=== PATIENT | female | born 1940 | race African-American/Black ===

== ENCOUNTER 2017-02-04 19:14 | Inpatient (IN) | payer OTHER, MEDICARE ==
[2017-02-04 20:00] VITALS: BP 135/88; PULSE 80; PULSE 89; RESP 18; TEMP 101.3; O2SAT 93
[2017-02-04] MEDS: SODIUM CHLORIDE 0.9% FLUSH 10 ML FLUSH PRN ×2 (20:15→20:30)
[2017-02-04 20:30] VITALS: O2SAT 96
[2017-02-04] MEDS ORDERED: ZOLPIDEM TARTRATE 5 MG TAB PO PRN (20:45)
[2017-02-04] MEDS ORDERED: METOCLOPRAMIDE HCL 10 MG/2 ML VIAL IV PRN (20:45)
[2017-02-04] MEDS ORDERED: RESP: ALBUTEROL 2.5 MG/IPRATROPIUM 0.5 MG NEB (PRN) INH (20:45)
[2017-02-04] MEDS ORDERED: LORazepam 2 MG/ML VIAL IV PRN (20:45)
[2017-02-04] MEDS ORDERED: CHLORHEXIDINE GLUCONATE 2 % 1 PACK (2 CLOTHS) TOP PRN (20:45)
[2017-02-04] MEDS ORDERED: MISCELLANEOUS NURSING INFORMATION XX SCH (20:45)
[2017-02-04] MEDS ORDERED: LABETALOL HCL 100 MG/20 ML VIAL IV PUSH ONE (20:45)
[2017-02-04] MEDS ORDERED: ONDANSETRON HCL 4 MG/2 ML VIAL IV PRN (20:45)
[2017-02-04] MEDS: SODIUM CHLORIDE 0.9% FLUSH 10 ML FLUSH SCH (21:00)
[2017-02-04] MEDS: DOCUSATE SODIUM 100 MG CAP PO SCH (21:00)
[2017-02-04] MEDS: SODIUM CHLOR 0.9% 1000 ML INJ 1,000 ML IV SCH (21:00)
[2017-02-04 21:07] LABS: AUTOMATED NEUTROPHIL # 5.8 TH/MM3 (1.8-7.7); BASOPHIL % 0.5 % (0.0-2.0); EOSINOPHIL # 0.1 TH/MM3 (0-0.4); EOSINOPHIL % 0.7 % (0.0-4.0); HEMATOCRIT 36.2 % (35.0-46.0); HEMO FLAGS DIFF FINAL; LYMPH % 19.4 % (9.0-44.0); LYMPHOCYTE # 1.8 TH/MM3 (1.0-4.8); MEAN CELL VOLUME 87.3 FL (80.0-100.0); MEAN CORPUSCULAR HEMOGLOBIN 29.1 PG (27.0-34.0); MEAN CORPUSCULAR HGB CONC 33.4 % (32.0-36.0); MONO % 15.8 % (0.0-8.0); NEUT % 63.6 % (16.0-70.0); PLATELET COUNT 154 TH/MM3 (150-450); RED BLOOD COUNT 4.14 MIL/MM3 (4.00-5.30); WHITE BLOOD COUNT 9.1 TH/MM3 (4.0-11.0)
[2017-02-04 21:26] LABS: APTT (PATIENT) 29.4 SEC (24.3-30.1); PROTHROMBIN TIME - PATIENT 11.5 SEC (9.8-11.6)
[2017-02-04 21:33] LABS: ANION GAP 9 MEQ/L (5-15); AST (GOT) 19 U/L (15-37); BICARBONATE 26.2 MEQ/L (21.0-32.0); BLOOD UREA NITROGEN 10 MG/DL (7-18); CHLORIDE 103 MEQ/L (98-107); GLOMERULAR FILTRATION RATE 100 ML/MIN (>89); POTASSIUM 3.3 MEQ/L (3.5-5.1); SODIUM (NA) 138 MEQ/L (136-145)
[2017-02-04 21:38] LABS: ALKALINE PHOSPHATASE 54 U/L (45-117); ALT (GPT) 15 U/L (10-53); TOTAL BILIRUBIN ADULT 0.8 MG/DL (0.2-1.0)
[2017-02-04] MEDS: LABETALOL INJ 500 MG in SODIUM CHLORIDE 0.9% INJ 150 ML IV SCH (21:42)
[2017-02-04 21:53] LABS: BLOOD GAS BASE EXCESS -0.3 mmol/L (-2-2); BLOOD GAS CARBOXYHEMOGLOBIN 1.7 % (0-4); BLOOD GAS HCO3 23 mmol/L (22-26); BLOOD GAS METHEMOGLOBIN 1.7 % (0-2); BLOOD GAS O2 HGB SATURATION 93 % (90-100); BLOOD GAS OXYGEN CONTENT 15.1 Vol % (12.0-20.0); BLOOD GAS PCO2 34 mmHg (38-42); BLOOD GAS PO2 84 mmHg (61-120); BLOOD GAS TOTAL HGB 11.5 G/DL (12.0-16.0); CRITICAL VALUE NO; DRAW SITE ART LINE; LITER FLOW 4 L/M; OXYGEN DEVICE NASAL CANNULA; STAT NO; TEMP CORR TO 98.6
--- NOTE | 2017-02-04 22:07 | HHI.HP ---
History of Present Illness Chief Complaint: acute aortic dissection History of Present Illness 76 yo female with chest pain about a month ago for which she did not seek medical therapy and then had recurrent chest/abdominal pain a few days ago that prompted her to be admitted through the ER at an outside institution. She was found to have an acute TBAD and was transferred here. When I examined her this evening, she is pain free, having no distress, and looks comfortable. She says that the pain she had was in "her chest" but points to her epigastric region. Past/Family/Social History Past Medical History HTN DM Past Surgical History appy BTL Social History born and raised in [place] She lives at home and performs all her ADL including on occasion watching her grandchildren Coded Allergies: Lidocaine (Verified Allergy, Severe, unresponsive , 02/04/17) Review of Systems Constitutional: COMPLAINS OF: Fever Cardiovascular: COMPLAINS OF: Chest pain Gastrointestinal: COMPLAINS OF: Abdominal pain Psychiatric: DENIES: Anxiety Physical Exam Vitals/I&O Date Time Temp Pulse Resp B/P Pulse Ox O2 Delivery O2 Flow Rate FiO2 02/04/17 20:30 96 Nasal Cannula 4.00 Neuro: Somnolent but conversant and appropriate No focal deficits HEENT: NC/AT; sclera anicteric Neck: no JVD Heart: prominent S2 and occasional irreg bets appreciated Lungs: clear bilaterally Abdomen: nontender Vascular: palpable 2+ femoral pulses +Doppler signals B feet Extremities: no C/C/E; no tissue loss Laboratory Tests Test 02/04/17 02/04/17 02/04/17 20:25 20:50 21:45 Prothrombin Time 11.5 Prothromb Time International 1.0 Ratio Activated Partial 29.4 Thromboplast Time White Blood Count 9.1 Red Blood Count 4.14 Hemoglobin 12.1 Hematocrit 36.2 Mean Corpuscular Volume 87.3 Mean Corpuscular Hemoglobin 29.1 Mean Corpuscular Hemoglobin 33.4 Concent Red Cell Distribution Width 14.0 Platelet Count 154 Mean Platelet Volume 9.0 Neutrophils (%) (Auto) 63.6 Lymphocytes (%) (Auto) 19.4 Monocytes (%) (Auto) 15.8 Eosinophils (%) (Auto) 0.7 Basophils (%) (Auto) 0.5 Neutrophils # (Auto) 5.8 Lymphocytes # (Auto) 1.8 Monocytes # (Auto) 1.4 Eosinophils # (Auto) 0.1 Basophils # (Auto) 0.0 CBC Comment DIFF FINAL Differential Comment Sodium Level 138 Potassium Level 3.3 Chloride Level 103 Carbon Dioxide Level 26.2 Anion Gap 9 Blood Urea Nitrogen 10 Creatinine 0.69 Estimat Glomerular Filtration 100 Rate Random Glucose 107 Lactic Acid Level 0.9 Calcium Level 8.5 Total Bilirubin 0.8 Aspartate Amino Transf 19 (AST/SGOT) Alanine Aminotransferase 15 (ALT/SGPT) Alkaline Phosphatase 54 Troponin I LESS THAN 0.02 Total Protein 6.9 Albumin 2.9 Blood Type O POSITIVE Antibody Screen NEGATIVE Blood Gas Puncture Site ART LINE Blood Gas Patient Temperature 98.6 Blood Gas HCO3 23 Blood Gas Base Excess -0.3 Blood Gas Oxygen Saturation 93 Arterial Blood pH 7.45 Arterial Blood Partial 34 Pressure CO2 Arterial Blood Partial 84 Pressure O2 Arterial Blood Oxygen Content 15.1 Arterial Blood 1.7 Carboxyhemoglobin Arterial Blood Methemoglobin 1.7 Blood Gas Hemoglobin 11.5 Oxygen Delivery Device NASAL CANNULA Blood Gas Liter Flow 4 Outside CTA of C/A/P: type B aortic dissection with slight aneurysmal degeneration but no other complicating features. Does have pleural effusion. 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 Labetolol gtt for goal SBP <110. 2. Watch for recurrent back/chest/abdominal pain 3. MIVF 4. Anticipate repeat CTA on Monday if no recurrent pain I talked with the patient about the plan as well as her daughter via telephone. They agree with plan as outlined. Herman Barbour MD FACS small piece cutter [facility] - [facility] at [facility] [phone] Herman Barbour MD Feb 04, 2017 22:07
[2017-02-04 22:36] LABS: CREATINE KINASE 327 U/L (26-192)
[2017-02-04] MEDS ORDERED: POTASSIUM CHLOR 40 MEQ PREMIX 100 ML IV PRN ×2 (22:45)
[2017-02-04] MEDS ORDERED: POTASSIUM PHOSPHATE MONOBASIC 500 MG TAB PO/TUBE PRN (22:45)
[2017-02-04] MEDS ORDERED: POTASSIUM PHOSPHATE INJ 30 MMOL in SODIUM CHLOR 0.9% 250 ML INJ 250 ML IV PRN (22:45)
[2017-02-04] MEDS ORDERED: SODIUM PHOSPHATE INJ 30 MMOL in SODIUM CHLOR 0.9% 250 ML INJ 240 ML IV PRN (22:45)
[2017-02-04] MEDS ORDERED: POTASSIUM CHLOR 20 MEQ PREMIX 100 ML IV PRN (22:45)
[2017-02-04] MEDS ORDERED: MAGNESIUM OXIDE 400 MG TAB PO PRN (22:45)
[2017-02-04] MEDS ORDERED: POTASSIUM PHOSPHATE MONOBASIC 500 MG TAB PO PRN (22:45)
[2017-02-04] MEDS ORDERED: MAGNESIUM SULFATE INJ 4 GM in SODIUM CHLORIDE 0.9% INJ 92 ML IV PRN (22:45)
[2017-02-04] MEDS ORDERED: MAGNESIUM SULFATE INJ 2 GM in SODIUM CHLORIDE 0.9% INJ 96 ML IV PRN (22:45)
[2017-02-04 22:57] LABS: CKMB 1.3 NG/ML (0.5-3.6)
--- NOTE | 2017-02-04 23:06 | PD.CONS ---
HPI Service Critical Care Medicine Consult Requested By Primary Care Physician Unknown History of Present Illness 76-year-old very pleasant female resented to [facility] with chest pain and abdominal pain that started a few weeks ago however escalated a few days ago that prompted her to be admitted through the ER at an outside institution. She was found to have an acute thoracic type B aortic dissection and was transferred here for however of care. Review of Systems Constitutional: DENIES: Diaphoretic episodes, Fatigue, Fever, Weight gain, Weight loss, Chills, Dizziness, Change in appetite, Night Sweats Endocrine: DENIES: Abnorml menstrual pattern, Heat/cold intolerance, Polydipsia , Polyuria, Polyphagia Eyes: DENIES: Blurred vision, Diplopia, Eye inflammation, Eye pain, Vision loss , Photosensitivity, Double Vision Ears, nose, mouth, throat: DENIES: Tinnitus, Hearing loss, Vertigo, Nasal discharge, Oral lesions, Throat pain, Hoarseness, Ear Pain, Running Nose, Epistaxis, Sinus Pain, Toothache, Odynophagia Respiratory: DENIES: Apneas, Cough, Snoring, Wheezing, Hemoptysis, Sputum production, Shortness of breath Cardiovascular: COMPLAINS OF: Chest pain, DENIES: Palpitations, Syncope, Dyspnea on Exertion, PND, Lower Extremity Edema, Orthopnea, Claudication Gastrointestinal: COMPLAINS OF: Abdominal pain, DENIES: Black stools, Bloody stools, Constipation, Diarrhea, Nausea, Vomiting, Difficulty Swallowing, Anorexia Genitourinary: DENIES: Abnormal vaginal bleeding, Dysmenorrhea, Dyspareunia, Sexual dysfunction, Urinary frequency, Urinary incontinence, Urgency, Hematuria , Dysuria, Nocturia, Vaginal discharge Musculoskeletal: DENIES: Joint pain, Muscle aches, Stiffness, Joint Swelling, Back pain, Neck pain Integumentary: DENIES: Abnormal pigmentation, Pruritus, Rash, Nail changes, Breast masses, Breast skin changes, Nipple discharge Hematologic/lymphatic: DENIES: Bruising, Lymphadenopathy Immunologic/allergic: DENIES: Eczema, Urticaria Neurologic: DENIES: Abnormal gait, Headache, Localized weakness, Paresthesias, Seizures, Speech Problems, Tremor, Poor Balance Psychiatric: DENIES: Anxiety, Confusion, Mood changes, Depression, Hallucinations, Agitation, Suicidal Ideation, Homicidal Ideation, Delusions Past Family Social History Allergies: Coded Allergies: Lidocaine (Verified Allergy, Severe, unresponsive , 02/04/17) Past Medical History Hypertension Diabetes mellitus Active Ordered Medications Current Medications Medications (Trade) Dose Ordered Sig/Simeon Route PRN Reason Start Time Stop Time Status Last Admin Dose Admin Labetalol HCl 500 mg/Sodium Chloride 250 ml @ 0 mls/hr TITRATE IV 02/04/17 20:45 02/04/17 21:42 Sodium Chloride (NS 1000 ml Inj) 1,000 ml @ 84 mls/hr [id number] IV 02/04/17 21:00 02/04/17 21:00 Sodium Chloride (NS Flush) 2 ml UNSCH PRN .XX FLUSH AFTER USING IV ACCESS 02/04/17 20:45 02/04/17 20:30 Sodium Chloride (NS Flush) 2 ml BID .XX 02/04/17 21:00 02/04/17 21:00 Acetaminophen (Tylenol) 650 mg Q6H PRN PO PAIN 1-10 AND/OR FEVER >101F 02/04/17 20:45 Morphine Sulfate (Morphine Inj) 2 mg Q2H PRN IV PAIN SCALE 6 TO 10 02/04/17 20:45 Famotidine (Pepcid Inj) 20 mg Q12HR IV PUSH 02/04/17 21:00 02/04/17 23:17 Lorazepam (Ativan Inj) 2 mg Q4H PRN IV Agitation/Sedation 02/04/17 20:45 Ondansetron HCl (Zofran Inj) 4 mg Q6H PRN IV NAUSEA OR VOMITING 02/04/17 20:45 Metoclopramide HCl (Reglan Inj) 10 mg Q6H PRN IV NAUSEA OR VOMITING 02/04/17 20:45 Docusate Sodium (Colace) 100 mg BID PO 02/04/17 21:00 Zolpidem Tartrate (Ambien) 5 mg HS PRN PO INSOMNIA 02/04/17 20:45 Miscellaneous Information 1 [id number] XX 02/04/17 20:45 Chlorhexidine Gluconate (Chlorhexidine 2% Cloth) 3 pack Taper DAILY@04 TOP 02/05/17 04:00 02/01/18 03:59 Chlorhexidine Gluconate 3 pack 3 pack UNSCH PRN TOP HYGIENIC CARE 02/04/17 20:45 Potassium Chloride 100 ml @ 50 mls/hr Q2H PRN IV For Potassium 2.8 - 3.2 mEq/L 02/04/17 22:45 Potassium Chloride 100 ml @ 50 mls/hr Q2H PRN IV For Potassium 2.8 - 3.2 mEq/L 02/04/17 22:45 Potassium Chloride 100 ml @ 25 mls/hr UNSCH PRN IV For Potassium 3.3 - 3.5 mEq/L 02/04/17 22:45 Potassium Chloride 100 ml @ 50 mls/hr Q2H PRN IV For Potassium 3.3 - 3.5 mEq/L 02/04/17 22:45 02/04/17 23:17 Magnesium Sulfate/ Sodium Chloride (Magnesium Sulfate Inj/NS Inj) 100 ml @ 50 mls/hr UNSCH PRN IV For Magnesium 0.9 - 1.1 mg/dL 02/04/17 22:45 Magnesium Oxide 800 mg 800 mg UNSCH PRN PO For Magnesium 1.2 - 1.6 mg/dL 02/04/17 22:45 Magnesium Sulfate/ Sodium Chloride (Magnesium Sulfate Inj/NS Inj) 100 ml @ 50 mls/hr UNSCH PRN IV For Magnesium 1.2 - 1.6 mg/dL 02/04/17 22:45 Potassium Phosphate 2000 mg 2,000 mg Q4H PRN PO For Phosphorus < 2.5 mg/dL 02/04/17 22:45 Sodium Phosphate/ Sodium Chloride (Sodium Phosphate Inj/NS 250 ml Inj) 250 ml @ 42 mls/hr UNSCH PRN IV For Phosphorus < 2.5 mg/dL 02/04/17 22:45 Potassium Phosphate 2000 mg 2,000 mg UNSCH PRN PO/TUBE SEE LABEL COMMENTS 02/04/17 22:45 Potassium Phosphate/Sodium Chloride (Potassium Phosphate Inj/NS 250 ml Inj) 260 ml @ 42 mls/hr UNSCH PRN IV SEE LABEL COMMENTS 02/04/17 22:45 Family History Noncontributory Social History Negative 3 Physical Exam Vital Signs Vital Signs Date Time Temp Pulse Resp B/P Pulse Ox O2 Delivery O2 Flow Rate FiO2 02/04/17 20:30 96 Nasal Cannula 4.00 Physical Exam GENERAL: Well-nourished, well-developed patient. In no acute distress SKIN: Warm and dry. HEAD: Normocephalic. EYES: No scleral icterus. No injection or drainage. NECK: Supple, trachea midline. No JVD or lymphadenopathy. CARDIOVASCULAR: Regular rate and rhythm without murmurs, gallops, or rubs. RESPIRATORY: Breath sounds equal bilaterally. No accessory muscle use. GASTROINTESTINAL: Abdomen soft, non-tender, nondistended. MUSCULOSKELETAL: No cyanosis, or edema. BACK: Nontender without obvious deformity. No CVA tenderness. EXTREMITIES: No clubbing cyanosis or edema, peripheral pulses positive bilaterally Laboratory Laboratory Tests Test 02/04/17 02/04/17 02/04/17 20:25 20:50 21:45 Prothrombin Time 11.5 Prothromb Time International 1.0 Ratio Activated Partial 29.4 Thromboplast Time White Blood Count 9.1 Red Blood Count 4.14 Hemoglobin 12.1 Hematocrit 36.2 Mean Corpuscular Volume 87.3 Mean Corpuscular Hemoglobin 29.1 Mean Corpuscular Hemoglobin 33.4 Concent Red Cell Distribution Width 14.0 Platelet Count 154 Mean Platelet Volume 9.0 Neutrophils (%) (Auto) 63.6 Lymphocytes (%) (Auto) 19.4 Monocytes (%) (Auto) 15.8 Eosinophils (%) (Auto) 0.7 Basophils (%) (Auto) 0.5 Neutrophils # (Auto) 5.8 Lymphocytes # (Auto) 1.8 Monocytes # (Auto) 1.4 Eosinophils # (Auto) 0.1 Basophils # (Auto) 0.0 CBC Comment DIFF FINAL Differential Comment Sodium Level 138 Potassium Level 3.3 Chloride Level 103 Carbon Dioxide Level 26.2 Anion Gap 9 Blood Urea Nitrogen 10 Creatinine 0.69 Estimat Glomerular Filtration 100 Rate Random Glucose 107 Lactic Acid Level 0.9 Calcium Level 8.5 Total Bilirubin 0.8 Aspartate Amino Transf 19 (AST/SGOT) Alanine Aminotransferase 15 (ALT/SGPT) Alkaline Phosphatase 54 Total Creatine Kinase 327 Creatine Kinase MB 1.3 Creatine Kinase MB % 0.4 Troponin I LESS THAN 0.02 Total Protein 6.9 Albumin 2.9 Blood Type O POSITIVE Antibody Screen NEGATIVE Blood Gas Puncture Site ART LINE Blood Gas Patient Temperature 98.6 Blood Gas HCO3 23 Blood Gas Base Excess -0.3 Blood Gas Oxygen Saturation 93 Arterial Blood pH 7.45 Arterial Blood Partial 34 Pressure CO2 Arterial Blood Partial 84 Pressure O2 Arterial Blood Oxygen Content 15.1 Arterial Blood 1.7 Carboxyhemoglobin Arterial Blood Methemoglobin 1.7 Blood Gas Hemoglobin 11.5 Oxygen Delivery Device NASAL CANNULA Blood Gas Liter Flow 4 Result Diagram: 02/04/17204902/04/172049 Assessment and Plan Assessment and Plan Type B aortic dissection - Management for vascular surgery - Tight blood pressure control - Labetalol drip - SBP goal less than 110 Hypertension - Labetalol drip - SBP goal less than 110 Diabetes mellitus - Insulin sliding scale Hypokalemia - Electrolyte replacement per ICU protocol DVT GI prophylaxis - No chemical DVT prophylaxis due to high risk of bleed - Teds SCDs and Pepcid Critical Care: The total critical care time was 35 minutes. Time to perform other separately billable procedures was not included in the critical care time. Brian Edmond MD Feb 04, 2017 23:06
[2017-02-04] MEDS: POTASSIUM CHLOR 20 MEQ PREMIX 100 ML IV PRN (23:17)
[2017-02-04] MEDS: FAMOTIDINE 20 MG/2 ML VIAL IV PUSH SCH (23:17)
[2017-02-05] VITALS (7 sets, daily range): BP systolic 102–148; BP diastolic 46–79; PULSE 78–86; RESP 16–20; TEMP 98–100.9; O2SAT 94–98
[2017-02-05] MEDS: POTASSIUM CHLOR 20 MEQ PREMIX 100 ML IV PRN (01:30)
[2017-02-05] MEDS: CHLORHEXIDINE GLUCONATE 2 % 1 PACK (2 CLOTHS) TOP SCH (04:00)
[2017-02-05] MEDS: LABETALOL INJ 500 MG in SODIUM CHLORIDE 0.9% INJ 150 ML IV SCH ×2 (04:48→10:01)
[2017-02-05 05:09] LABS: AUTOMATED NEUTROPHIL # 6.9 TH/MM3 (1.8-7.7); BASOPHIL % 0.3 % (0.0-2.0); EOSINOPHIL % 0.2 % (0.0-4.0); HEMATOCRIT 34.3 % (35.0-46.0); HEMO FLAGS DIFF FINAL; INTERNATIONAL NORMALIZED RATIO 1.1 RATIO; LYMPH % 10.5 % (9.0-44.0); MEAN CELL VOLUME 87.7 FL (80.0-100.0); MEAN CORPUSCULAR HEMOGLOBIN 29.3 PG (27.0-34.0); MEAN CORPUSCULAR HGB CONC 33.3 % (32.0-36.0); MONO % 19.3 % (0.0-8.0); NEUT % 69.7 % (16.0-70.0); PLATELET COUNT 145 TH/MM3 (150-450); PROTHROMBIN TIME - PATIENT 11.9 SEC (9.8-11.6); RED BLOOD COUNT 3.91 MIL/MM3 (4.00-5.30); WHITE BLOOD COUNT 9.9 TH/MM3 (4.0-11.0)
[2017-02-05 05:16] LABS: ALKALINE PHOSPHATASE 51 U/L (45-117); ALT (GPT) 13 U/L (10-53); ANION GAP 7 MEQ/L (5-15); AST (GOT) 20 U/L (15-37); BICARBONATE 27.4 MEQ/L (21.0-32.0); BLOOD UREA NITROGEN 12 MG/DL (7-18); CHLORIDE 106 MEQ/L (98-107); GLOMERULAR FILTRATION RATE 90 ML/MIN (>89); MAGNESIUM 1.7 MG/DL (1.5-2.5); POTASSIUM 3.7 MEQ/L (3.5-5.1); SODIUM (NA) 140 MEQ/L (136-145); TOTAL BILIRUBIN ADULT 0.8 MG/DL (0.2-1.0)
--- NOTE | 2017-02-05 07:11 | HHI.CCPN ---
Subjective Remarks/Hospital Course 76-year-old very pleasant female resented to [facility] with chest pain and abdominal pain that started a few weeks ago however escalated a few days ago that prompted her to be admitted through the ER at an outside institution. She was found to have an acute thoracic type B aortic dissection and was transferred here for however of care. SUBJ: 02/05 remains on labetalol infusion with good blood pressure control. Spiked fever 101.4. Pancultured chest x-ray pending. Conservative medical management and CT angiogram in a.m. Objective Vital Signs Date Time Temp Pulse Resp B/P Pulse Ox O2 Delivery O2 Flow Rate FiO2 02/05/17 04:00 80 02/05/17 04:00 96 Nasal Cannula 2.00 02/05/17 04:00 100.2 16 120/69 124/59 Result Diagram: 02/05/17 0440 02/05/17 0440 Other Results Laboratory Tests Test 02/04/17 21:45 Blood Gas Puncture Site ART LINE Blood Gas Patient Temperature 98.6 Blood Gas HCO3 23 mmol/L (22-26) Blood Gas Base Excess -0.3 mmol/L (-2-2) Blood Gas Oxygen Saturation 93 % (90-100) Arterial Blood pH 7.45 (7.380-7.420) Arterial Blood Partial 34 mmHg (38-42) Pressure CO2 Arterial Blood Partial 84 mmHg Pressure O2 (61-120) Arterial Blood Oxygen Content 15.1 Vol % (12.0-20.0) Arterial Blood 1.7 % (0-4) Carboxyhemoglobin Arterial Blood Methemoglobin 1.7 % (0-2) Blood Gas Hemoglobin 11.5 G/DL (12.0-16.0) Oxygen Delivery Device NASAL CANNULA Blood Gas Liter Flow 4 L/M Objective Remarks GENERAL: Well-nourished, well-developed patient. In no acute distress SKIN: Warm and dry. HEAD: Normocephalic. EYES: No scleral icterus. No injection or drainage. NECK: Supple, trachea midline. No JVD or lymphadenopathy. CARDIOVASCULAR: Regular rate and rhythm without murmurs, gallops, or rubs. Pulses are positive with Doppler bilateral lower extremity RESPIRATORY: Breath sounds equal bilaterally. No accessory muscle use. GASTROINTESTINAL: Abdomen soft, mild diffuse tenderness, nondistended. MUSCULOSKELETAL: No cyanosis, or edema. BACK: Nontender without obvious deformity. No CVA tenderness. EXTREMITIES: No clubbing cyanosis or edema, peripheral pulses positive bilaterally NEURO: Alert awake oriented 2. No focal deficits A/P Assessment and Plan A/P Neuro: -Morphine and Tylenol for pain control -Ativan as needed for anxiety CVS: Type B aortic dissection Hypertension - Vascular surgery Dr. Barbour - Tight blood pressure control.SBP goal less than 120, Labetalol drip - Start by mouth labetalol once cleared by vascular surgery for by mouth medications - CTA am GI: -Nothing by mouth, Pepcid for GI prophylaxis : -Monitor renal function closely -Modi catheter ID: Fever -Chek UA completed, chest x-ray, blood cultures urine and sputum culture -No indication for antibiotics at this time Endo Diabetes mellitus Hypokalemia - Insulin sliding scale - Electrolyte replacement per ICU protocol DVT GI prophylaxis - No chemical DVT prophylaxis due to high risk of bleed - Teds SCDs and Pepcid Critical Care: Level 3 Yue Lester MD Feb 05, 2017 07:11
[2017-02-05] MEDS ORDERED: LABETALOL INJ 500 MG in SODIUM CHLORIDE 0.9% INJ 150 ML IV SCH (07:45)
--- NOTE | 2017-02-05 07:46 | RADRPT ---
EXAM DATE/TIME: 02/05/2017 07:20 [place] COMPARISON: No previous studies available for comparison. INDICATIONS : Respiratory disease. MEDICAL HISTORY : None. SURGICAL HISTORY : None. ENCOUNTER: Initial ACUITY: 1 day PAIN SCORE: 0/10 LOCATION: Bilateral chest FINDINGS: Single portable supine view of the chest demonstrate significant enlargement of the cardiac silhouett e and tortuosity of the thoracic aorta. There is increased density overlying the left lower lobe and obscuration left hemidiaphragm consistent with pleural fluid and/or atelectasis/consolidation. The os seous structures are grossly unremarkable. CONCLUSION: Significantly enlarged cardiac silhouette and left basilar airspace consolidation and pleural fluid. Consider further evaluation with CT to exclude mediastinal mass. Monica Cid MD on February 05, 2017 at 7:42 Board Certified Radiologist. This report was verified electronically.
[2017-02-05] MEDS: SODIUM CHLORIDE 0.9% FLUSH 10 ML FLUSH SCH ×2 (09:00→20:24)
[2017-02-05 09:21] LABS: BLOOD, URINE MOD (NEG); GLUCOSE,URINE NEG (NEG); HYALINE CAST, URINE 1 /lpf (RARE); KETONE, URINE NEG (NEG); MUCUS URINE FEW /lpf (OCC); NITRITE,URINE NEG (NEG); SQUAMOUS EPITHELIAL CELL URINE 1 /hpf (0-5); URINE COLOR YELLOW (YELLW/STRAW)
--- NOTE | 2017-02-05 09:34 | PD.VS.PN ---
Subjective Subjective/Hospital Course Pt looks good this morning - only very mild epigastric pain but no chest pain and no back pain. SBP controlled with labetolol gtt Neuro intact Objective Vitals/I&O Date Time Temp Pulse Resp B/P Pulse Ox O2 Delivery O2 Flow Rate FiO2 02/05/17 07:00 96 Nasal Cannula 2.00 02/05/17 07:00 99.3 85 20 135/79 98 112/69 02/05/17 07:00 85 02/05/17 04:00 80 02/05/17 04:00 96 Nasal Cannula 2.00 02/05/17 04:00 100.2 80 16 120/69 94 124/59 02/05/17 00:00 80 02/05/17 00:00 94 Nasal Cannula 2.00 02/05/17 00:00 100.9 80 16 111/64 94 108/53 02/04/17 20:30 96 Nasal Cannula 4.00 02/04/17 20:00 101.3 89 18 135/88 93 02/04/17 20:00 93 Nasal Cannula 2.00 02/04/17 20:00 80 02/05/17 02/05/17 02/05/17 07:00 15:00 23:00 Intake Total 1184 ml Output Total 700 ml Balance 484 ml Physical Exam Abdomen soft, NT Neuro intact Laboratory Laboratory Tests Test 02/04/17 02/04/17 02/04/17 02/05/17 20:25 20:50 21:45 04:40 Prothrombin Time 11.5 11.9 Prothromb Time International 1.0 1.1 Ratio Activated Partial 29.4 Thromboplast Time White Blood Count 9.1 9.9 Red Blood Count 4.14 3.91 Hemoglobin 12.1 11.4 Hematocrit 36.2 34.3 Mean Corpuscular Volume 87.3 87.7 Mean Corpuscular Hemoglobin 29.1 29.3 Mean Corpuscular Hemoglobin 33.4 33.3 Concent Red Cell Distribution Width 14.0 14.0 Platelet Count 154 145 Mean Platelet Volume 9.0 9.3 Neutrophils (%) (Auto) 63.6 69.7 Lymphocytes (%) (Auto) 19.4 10.5 Monocytes (%) (Auto) 15.8 19.3 Eosinophils (%) (Auto) 0.7 0.2 Basophils (%) (Auto) 0.5 0.3 Neutrophils # (Auto) 5.8 6.9 Lymphocytes # (Auto) 1.8 1.0 Monocytes # (Auto) 1.4 1.9 Eosinophils # (Auto) 0.1 0.0 Basophils # (Auto) 0.0 0.0 CBC Comment DIFF FINAL DIFF FINAL Differential Comment Sodium Level 138 140 Potassium Level 3.3 3.7 Chloride Level 103 106 Carbon Dioxide Level 26.2 27.4 Anion Gap 9 7 Blood Urea Nitrogen 10 12 Creatinine 0.69 0.76 Estimat Glomerular Filtration 100 90 Rate Random Glucose 107 127 Lactic Acid Level 0.9 1.5 Calcium Level 8.5 8.4 Phosphorus Level 2.6 2.4 Total Bilirubin 0.8 0.8 Aspartate Amino Transf 19 20 (AST/SGOT) Alanine Aminotransferase 15 13 (ALT/SGPT) Alkaline Phosphatase 54 51 Total Creatine Kinase 327 Creatine Kinase MB 1.3 Creatine Kinase MB % 0.4 Troponin I LESS THAN 0.02 Total Protein 6.9 6.4 Albumin 2.9 2.5 Blood Type O POSITIVE Antibody Screen NEGATIVE Blood Gas Puncture Site ART LINE Blood Gas Patient Temperature 98.6 Blood Gas HCO3 23 Blood Gas Base Excess -0.3 Blood Gas Oxygen Saturation 93 Arterial Blood pH 7.45 Arterial Blood Partial 34 Pressure CO2 Arterial Blood Partial 84 Pressure O2 Arterial Blood Oxygen Content 15.1 Arterial Blood 1.7 Carboxyhemoglobin Arterial Blood Methemoglobin 1.7 Blood Gas Hemoglobin 11.5 Oxygen Delivery Device NASAL CANNULA Blood Gas Liter Flow 4 Nasal Screen MRSA (PCR) NEGATIVE Magnesium Level 1.7 Test 02/05/17 08:45 Urine Color YELLOW Urine Turbidity CLEAR Urine pH 6.0 Urine Specific [place] 1.024 Urine Protein 30 Urine Glucose (UA) NEG Urine Ketones NEG Urine Occult Blood MOD Urine Nitrite NEG Urine Bilirubin NEG Urine Urobilinogen 4.0 Urine Leukocyte Esterase NEG Urine RBC 2 Urine WBC 1 Urine Squamous Epithelial 1 Cells Urine Hyaline Casts 1 Urine Mucus FEW Date/Time Procedure Status Source Growth 02/05/17 08:45 Urine Culture Received Urine Catheterized Urine Pending 02/05/17 07:45 Aerobic Blood Culture Received Blood Peripheral Pending 02/05/17 07:45 Anaerobic Blood Culture Received Blood Peripheral Pending Imaging Last 48 hours Impressions Chest X-Ray 02/05/17 0000 Signed Impressions: Service Date/Time: Sunday, February 05, 2017 07:20 - CONCLUSION: Significantly enlarged cardiac silhouette and left basilar airspace consolidation and pleural fluid. Consider further evaluation with CT to exclude mediastinal mass. 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 Labetolol for goal SBP <110. Transition IV gtt to po 2. Watch for recurrent back/chest/abdominal pain 3. MIVF 4. Repeat CTA on Monday if no recurrent pain 5. Cardiac diet I talked with the patient about the plan as well as her daughter and son at the bedside. Herman Barbour MD FACS pilot plant research technician [facility] - Heart and Vascular at [facility] [phone] Herman Barbour MD Feb 05, 2017 09:34
[2017-02-05] MEDS: SODIUM CHLOR 0.9% 1000 ML INJ 1,000 ML IV SCH (10:00)
[2017-02-05] MEDS: FAMOTIDINE 20 MG/2 ML VIAL IV PUSH SCH ×2 (10:01→20:23)
[2017-02-05] MEDS: DOCUSATE SODIUM 100 MG CAP PO SCH ×2 (10:01→20:23)
[2017-02-05] MEDS ORDERED: PILL SPLITTER OTHER PRN (10:45)
[2017-02-05] MEDS ORDERED: LABETALOL HCL 100 MG/20 ML VIAL IV PUSH PRN (11:00)
[2017-02-05] MEDS: amLODIPine BESYLATE 5 MG TAB PO SCH (11:17)
[2017-02-05] MEDS ORDERED: METO100T PO (14:31)
[2017-02-05] MEDS ORDERED: CLON0.1T PO (14:39)
[2017-02-05] MEDS ORDERED: AMLO10TA2 PO (14:39)
[2017-02-05] MEDS ORDERED: METF1000 PO (14:39)
[2017-02-05] MEDS ORDERED: ASPI81CH37 CHEW (14:39)
[2017-02-05] MEDS ORDERED: SIMV20TA PO (14:39)
[2017-02-05] MEDS ORDERED: SERT-132 PO (14:39)
[2017-02-05] MEDS ORDERED: OXYB5TAB10 PO (14:39)
[2017-02-05] MEDS ORDERED: POTA10TA15 PO (14:39)
[2017-02-05] MEDS ORDERED: FURO40TA PO (14:39)
[2017-02-05] MEDS: LABETALOL HCL 200 MG TAB PO SCH ×2 (14:46→20:23)
--- NOTE | 2017-02-05 14:48 | EKG ---
Date Performed: 02/05/2017 Time Performed: 05:30:04 PTAGE: 76 years EKG: Sinus rhythm Normal ECG NO PREVIOUS TRACING DOCTOR: Otoniel De Paz Interpretating Date/Time 02/05/2017 14:46:36
[2017-02-05] MEDS ORDERED: HALOPERIDOL LACTATE 5 MG/ML AMP ONE (21:22)
[2017-02-05] MEDS ORDERED: HALOPERIDOL LACTATE 5 MG/ML AMP IV STA (22:09)
[2017-02-06] VITALS (10 sets, daily range): BP systolic 92–149; BP diastolic 39–85; PULSE 76–83; RESP 16–18; TEMP 98.4–99.7; O2SAT 95–98
[2017-02-06] MEDS: LABETALOL INJ 500 MG in SODIUM CHLORIDE 0.9% INJ 150 ML IV SCH ×3 (00:18→22:00)
[2017-02-06] MEDS: CHLORHEXIDINE GLUCONATE 2 % 1 PACK (2 CLOTHS) TOP SCH (04:00)
[2017-02-06] MEDS ORDERED: EPINEPHrine HCL (1:10,000) 1 MG/10 ML SYRINGE IV ONE (05:00)
[2017-02-06] MEDS ORDERED: ATROPINE SULFATE 1 MG/10 ML SYRINGE IV ONE (05:00)
[2017-02-06] MEDS: SODIUM CHLOR 0.9% 1000 ML INJ 1,000 ML IV SCH ×3 (05:00→20:40)
--- NOTE | 2017-02-06 07:39 | HHI.CCPN ---
Subjective Remarks/Hospital Course 76-year-old very pleasant female resented to [facility] with chest pain and abdominal pain that started a few weeks ago however escalated a few days ago that prompted her to be admitted through the ER at an outside institution. She was found to have an acute thoracic type B aortic dissection and was transferred here for however of care. SUBJ: 02/05 remains on labetalol infusion with good blood pressure control. Spiked fever 101.4. Pancultured chest x-ray pending. Conservative medical management and CT angiogram in a.m. 02/06: Overnight intermittently agitated. Required Ativan and Haldol. CXR 02/05 with L consolidation, effusion and enlarged cardiac silhouette. CTA chest abd pelvis ordered. Started empirically on Zosyn and azithromycin. No high fever reported Objective Vital Signs Date Time Temp Pulse Resp B/P Pulse Ox O2 Delivery O2 Flow Rate FiO2 02/06/17 04:00 76 18 92/39 97 02/06/17 04:00 Nasal Cannula 4.00 02/05/17 20:00 98.0 Intake and Output 02/05/17 02/05/17 02/06/17 08:00 16:00 00:00 Intake Total 1184 ml 2334 ml Output Total 700 ml 475 ml Balance 484 ml 1859 ml Result Diagram: 02/05/1743902/05/17439 Objective Remarks GENERAL: Well-nourished, well-developed patient. somnolent but wakes up easily SKIN: Warm and dry. HEAD: Normocephalic. EYES: No scleral icterus. No injection or drainage. NECK: Supple, trachea midline. No JVD or lymphadenopathy. CARDIOVASCULAR: Regular rate and rhythm without murmurs, gallops, or rubs. Pulses are positive with Doppler bilateral lower extremity RESPIRATORY: Breath sounds diminished at bases . No accessory muscle use. GASTROINTESTINAL: Abdomen soft, mild diffuse tenderness, nondistended. MUSCULOSKELETAL: No cyanosis, or edema. BACK: Nontender without obvious deformity. No CVA tenderness. EXTREMITIES: No clubbing cyanosis or edema, peripheral pulses positive bilaterally NEURO: Alert awake oriented 1. No focal deficits. More somnolent today Urinary Catheter: Yes Assessment to: Continue A/P Assessment and Plan A/P Neuro: Metabolic encephalopathy ? Underlying mild cognitive impairment -Morphine and Tylenol for pain control -Ativan and Haldol as needed for anxiety CVS: Type B aortic dissection Hypertension - Vascular surgery Dr. Barbour - Tight blood pressure control.SBP goal less than 120, Labetalol drip - By mouth labetalol 200 mg TID and Norvasc 2.5 mg daily - CTA chest abd pelvis today. CXR showing enlarged cardiac silhouette RESP: LLL infiltrate/effusion -DuoNeb q6 PRN. Aggressive pulmonary toilet -EzPAP, Acapella, IS -Empiric Zosyn and azithromycin -Check ABG. GI: -Cardiac diet if mentation permits, Pepcid for GI prophylaxis : -Monitor renal function closely -Modi catheter ID: Fever LLL infiltrate -F/u blood cultures urine and sputum culture -Start empiric Zosyn and azithromycin given left lower lobe infiltrate with effusion -Check urine for Legionella and pneumococcal antigen Endo Diabetes mellitus Hypokalemia - Insulin sliding scale - Electrolyte replacement per ICU protocol DVT GI prophylaxis - No chemical DVT prophylaxis due to aortic dissection - Teds SCDs and Pepcid Critical Care: CCT 32 minutes Yue Lester MD Feb 06, 2017 07:39
--- NOTE | 2017-02-06 08:21 | PD.VS.PN ---
Subjective Subjective/Hospital Course Pt slightly confused last night but no focal deficits Neuro intact Alert this morning no abdominal/chest/back paint Objective Vitals/I&O Date Time Temp Pulse Resp B/P Pulse Ox O2 Delivery O2 Flow Rate FiO2 02/06/17 07:00 99.7 79 16 146/78 95 122/53 02/06/17 07:00 95 Nasal Cannula 4.00 02/06/17 04:00 76 18 92/39 97 02/06/17 04:00 76 02/06/17 04:00 97 Nasal Cannula 4.00 02/06/17 00:00 79 18 129/54 96 02/06/17 00:00 80 02/06/17 00:00 96 Nasal Cannula 4.00 02/05/17 20:00 82 02/05/17 20:00 98.0 82 20 119/74 94 112/62 02/05/17 20:00 94 Nasal Cannula 4.00 02/05/17 15:00 99.5 86 20 148/78 96 128/60 02/05/17 15:00 86 02/05/17 15:00 96 Nasal Cannula 2.00 02/05/17 11:00 78 02/05/17 11:00 99.1 78 20 111/65 96 102/46 02/05/17 11:00 96 Nasal Cannula 2.00 02/06/17 02/06/17 02/06/17 07:00 15:00 23:00 Intake Total 1490 ml Output Total 900 ml Balance 590 ml Physical Exam no abdominal tenderness Palpable femoral pulses Laboratory Laboratory Tests Test 02/05/17 08:45 Urine Color YELLOW Urine Turbidity CLEAR Urine pH 6.0 Urine Specific [place] 1.024 Urine Protein 30 Urine Glucose (UA) NEG Urine Ketones NEG Urine Occult Blood MOD Urine Nitrite NEG Urine Bilirubin NEG Urine Urobilinogen 4.0 Urine Leukocyte Esterase NEG Urine RBC 2 Urine WBC 1 Urine Squamous Epithelial 1 Cells Urine Hyaline Casts 1 Urine Mucus FEW Date/Time Procedure Status Source Growth 02/05/17 08:45 Urine Culture Received Urine Catheterized Urine Pending 02/05/17 07:45 Aerobic Blood Culture Received Blood Peripheral Pending 02/05/17 07:45 Anaerobic Blood Culture Received Blood Peripheral Pending Imaging Last 48 hours Impressions Chest X-Ray 02/05/17 0000 Signed Impressions: Service Date/Time: Sunday, February 05, 2017 07:20 - CONCLUSION: Significantly enlarged cardiac silhouette and left basilar airspace consolidation and pleural fluid. Consider further evaluation with CT to exclude mediastinal mass. 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 Labetolol for goal SBP <110. Transition IV gtt to po 2. Watch for recurrent back/chest/abdominal pain 3. Cardiac diet 4. Repeat CTA today Herman Barbour MD FACS sr. vendor management associate [facility] - Heart and Vascular at [facility] [phone] Herman Barbour MD Feb 06, 2017 08:21
[2017-02-06 09:00] LABS: BLOOD GAS BASE EXCESS -1.1 mmol/L (-2-2); BLOOD GAS CARBOXYHEMOGLOBIN 1.5 % (0-4); BLOOD GAS HCO3 23 mmol/L (22-26); BLOOD GAS METHEMOGLOBIN 1.4 % (0-2); BLOOD GAS O2 HGB SATURATION 93 % (90-100); BLOOD GAS OXYGEN CONTENT 14.5 Vol % (12.0-20.0); BLOOD GAS PCO2 35 mmHg (38-42); BLOOD GAS PO2 84 mmHg (61-120); TEMP CORR TO 98.6
[2017-02-06] MEDS: FAMOTIDINE 20 MG/2 ML VIAL IV PUSH SCH ×2 (09:00→21:35)
[2017-02-06] MEDS: SODIUM CHLORIDE 0.9% FLUSH 10 ML FLUSH SCH ×2 (09:00→21:00)
[2017-02-06 09:01] LABS: CRITICAL VALUE NO; DRAW SITE ART LINE; LITER FLOW 4 L/M; OXYGEN DEVICE NASAL CANNULA; STAT NO
[2017-02-06 09:18] LABS: AUTOMATED NEUTROPHIL # 7.3 TH/MM3 (1.8-7.7); BASOPHIL % 0.5 % (0.0-2.0); EOSINOPHIL # 0.4 TH/MM3 (0-0.4); EOSINOPHIL % 3.4 % (0.0-4.0); HEMATOCRIT 34.3 % (35.0-46.0); HEMO FLAGS DIFF FINAL; LYMPH % 11.8 % (9.0-44.0); LYMPHOCYTE # 1.2 TH/MM3 (1.0-4.8); MEAN CELL VOLUME 88.4 FL (80.0-100.0); MEAN CORPUSCULAR HEMOGLOBIN 28.3 PG (27.0-34.0); NEUT % 69.3 % (16.0-70.0); PLATELET COUNT 146 TH/MM3 (150-450); RED BLOOD COUNT 3.88 MIL/MM3 (4.00-5.30); RED CELL DISTRIBUTION WIDTH 14.4 % (11.6-17.2); WHITE BLOOD COUNT 10.6 TH/MM3 (4.0-11.0)
[2017-02-06] MEDS: LABETALOL HCL 200 MG TAB PO SCH ×3 (09:22→21:35)
[2017-02-06] MEDS: amLODIPine BESYLATE 5 MG TAB PO SCH (09:22)
[2017-02-06] MEDS: DOCUSATE SODIUM 100 MG CAP PO SCH ×2 (09:23→21:35)
[2017-02-06 09:37] LABS: ANION GAP 7 MEQ/L (5-15); AST (GOT) 19 U/L (15-37); BICARBONATE 26.5 MEQ/L (21.0-32.0); BLOOD UREA NITROGEN 8 MG/DL (7-18); CHLORIDE 108 MEQ/L (98-107); GLOMERULAR FILTRATION RATE 108 ML/MIN (>89); MAGNESIUM 1.8 MG/DL (1.5-2.5); POTASSIUM 3.5 MEQ/L (3.5-5.1); SODIUM (NA) 141 MEQ/L (136-145)
[2017-02-06 09:42] LABS: ALKALINE PHOSPHATASE 58 U/L (45-117); ALT (GPT) 14 U/L (10-53); TOTAL BILIRUBIN ADULT 0.9 MG/DL (0.2-1.0)
[2017-02-06] MEDS: PIPERACIL-TAZO 3.375 GM PREMIX 50 ML IV SCH ×3 (09:44→21:35)
[2017-02-06] MEDS ORDERED: AZITHROMYCIN INJ 500 MG in SODIUM CHLOR 0.9% 250 ML INJ 250 ML IV SCH (10:00)
[2017-02-06] MEDS ORDERED: EPINEPHrine HCL (1:1000) 1 MG/ML VIAL ONE (10:18)
[2017-02-06] MEDS ORDERED: ATROPINE SULFATE 1 MG/ML VIAL ONE (10:18)
[2017-02-06] MEDS ORDERED: ATROPINE SULFATE 1 MG/10 ML SYRINGE ONE (10:19)
[2017-02-06] MEDS ORDERED: EPINEPHrine HCL (1:10,000) 1 MG/10 ML SYRINGE ONE (10:19)
[2017-02-06] MEDS ORDERED: IOHEXOL 350 MG/ML 10 ML VIAL (for RAD DIAG) IV ONE (10:34)
[2017-02-06] MEDS ORDERED: LABETALOL INJ 1,000 MG in SODIUM CHLORID 0.9% 500 ML INJ 300 ML IV SCH (12:45)
--- NOTE | 2017-02-06 13:06 | RADRPT ---
EXAM DATE/TIME: 02/06/2017 10:25 [facility] COMPARISON: No previous studies available for comparison. EXTERNAL COMPARISON : I have no external comparisons available to me. INDICATIONS : Evaluate status of dissection. IV CONTRAST: 85 cc Omnipaque 350 (iohexol) IV RADIATION DOSE: 9.96 CTDIvol (mGy) MEDICAL HISTORY : Hypertension. acute thoracic type B dissection, diabetes SURGICAL HISTORY : None. ENCOUNTER: Initial ACUITY: 1 day PAIN SCALE: 0/10 LOCATION: Bilateral chest TECHNIQUE: Volumetric scanning was performed using a multi-row detector CT scanner. The data was post processed with a variety of visualization algorithms including full volume maximum intensity projection, multi -planar sliding thin slab reformation, curved planar reformation, and surface rendering techniques. Using automated exposure control and adjustment of the mA and/or kV according to patient size, radiat ion dose was kept as low as reasonably achievable to obtain optimal diagnostic quality images. FINDINGS: Thoracic/abdominal aorta: A [place] type B aortic dissection is observed. The dissection begins approximately 4 cm distal to t he origin of the left subclavian artery. The dissection courses into the upper abnormal aorta where i t terminates. The arch vessels and SMA arise from the true lumen. The celiac arises from the false blayne men. Both the true and false lumens opacify with contrast. The descending aorta reaches a maximum charline meter of 4.5 cm. 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 These arise from the true lumen. The infrarenal aorta and inflow vessels are patent although with scattered calcified athe rosclerotic plaque. Heart and mediastinum: A moderate sized pleural effusion is seen on the left. Hounsfield units are 13 suggesting simple flui d. The heart is mildly enlarged. Pulmonary arteries are normal in caliber. No adenopathy. Lung parenchyma: There is passive atelectasis involving the left lower lobe. Mild dependent atelectasis involving the right lower lobe. Other structures: The abdominal viscera is unremarkable. In particular, the kidneys enhance symmetrically with a contra st bolus. No free air or free fluid. Scattered colonic diverticula is scoliotic and degenerative spin e. CONCLUSION: 1. Mario type B aortic dissection beginning approximately 4 cm distal to the left subclavian arter y origin and terminating just cephalad to the renal artery origins. The only vessel arising from the false lumen is the celiac. There is aneurysmal change of the ascending and descending aorta both of w hich measure 4.5 cm. There is some fenestration to the dissection flap as there is equal opacificatio n of the true and false lumens. Arch vessels are not involved. 2. Moderate size left pleural effusion. 3. Cardiomegaly. Ferny Harris Jr., MD on February 06, 2017 at 12:55 Board Certified Radiologist. This report was verified electronically.
[2017-02-07] VITALS (9 sets, daily range): BP systolic 111–146; BP diastolic 51–81; PULSE 68–85; RESP 16–18; TEMP 97.4–99.5; O2SAT 95–98
[2017-02-07] MEDS: LABETALOL INJ 500 MG in SODIUM CHLORIDE 0.9% INJ 150 ML IV SCH ×6 (01:29→22:07)
[2017-02-07] MEDS: PIPERACIL-TAZO 3.375 GM PREMIX 50 ML IV SCH ×4 (03:38→20:49)
[2017-02-07] MEDS: CHLORHEXIDINE GLUCONATE 2 % 1 PACK (2 CLOTHS) TOP SCH (04:00)
[2017-02-07 04:43] LABS: AUTOMATED NEUTROPHIL # 5.8 TH/MM3 (1.8-7.7); BASOPHIL % 0.4 % (0.0-2.0); EOSINOPHIL # 0.6 TH/MM3 (0-0.4); EOSINOPHIL % 6.8 % (0.0-4.0); HEMO FLAGS DIFF FINAL; LYMPH % 12.6 % (9.0-44.0); LYMPHOCYTE # 1.2 TH/MM3 (1.0-4.8); MEAN CELL VOLUME 87.9 FL (80.0-100.0); MEAN CORPUSCULAR HEMOGLOBIN 29.5 PG (27.0-34.0); MEAN CORPUSCULAR HGB CONC 33.6 % (32.0-36.0); MONO % 16.6 % (0.0-8.0); NEUT % 63.6 % (16.0-70.0); PLATELET COUNT 171 TH/MM3 (150-450); RED BLOOD COUNT 3.42 MIL/MM3 (4.00-5.30); RED CELL DISTRIBUTION WIDTH 14.2 % (11.6-17.2); WHITE BLOOD COUNT 9.2 TH/MM3 (4.0-11.0)
[2017-02-07 05:08] LABS: ALKALINE PHOSPHATASE 56 U/L (45-117); ALT (GPT) 13 U/L (10-53); ANION GAP 8 MEQ/L (5-15); AST (GOT) 13 U/L (15-37); BICARBONATE 26.2 MEQ/L (21.0-32.0); BLOOD UREA NITROGEN 7 MG/DL (7-18); CHLORIDE 109 MEQ/L (98-107); GLOMERULAR FILTRATION RATE 102 ML/MIN (>89); MAGNESIUM 1.9 MG/DL (1.5-2.5); POTASSIUM 3.4 MEQ/L (3.5-5.1); SODIUM (NA) 143 MEQ/L (136-145); TOTAL BILIRUBIN ADULT 0.9 MG/DL (0.2-1.0)
--- NOTE | 2017-02-07 05:22 | RADRPT ---
EXAM DATE/TIME: 02/07/2017 03:39 [facility] COMPARISON: CHEST SINGLE AP, February 05, 2017, 7:20. INDICATIONS : Respiratory distress. MEDICAL HISTORY : Hypertension. acute thoracic type B dissection, diabetes. SURGICAL HISTORY : None. ENCOUNTER: Subsequent ACUITY: 3 days PAIN SCORE: Non-responsive. LOCATION: Bilateral chest FINDINGS: There is left-sided airspace consolidation and pleural effusion. No significant airspace disease on t he right. No pneumothorax. Heart size mildly enlarged. Tortuous aorta. CONCLUSION: 1. Left basilar airspace disease and pleural effusion. Findings similar to February 05. Cardiomegaly. Miller Juarez MD on February 07, 2017 at 5:20 Board Certified Radiologist. This report was verified electronically.
[2017-02-07] MEDS: LABETALOL HCL 200 MG TAB PO SCH ×3 (06:14→20:49)
[2017-02-07] MEDS ORDERED: LABETALOL HCL 200 MG TAB PO STA (07:05)
[2017-02-07] MEDS ORDERED: FUROSEMIDE 20 MG/2 ML VIAL IV PUSH ONE (07:15)
[2017-02-07] MEDS ORDERED: POTASSIUM CHLORIDE 10 MEQ CONTROLLED RELEASE TAB PO ONE (07:15)
--- NOTE | 2017-02-07 07:17 | HHI.CCPN ---
Subjective Remarks/Hospital Course 76-year-old very pleasant female resented to [facility] with chest pain and abdominal pain that started a few weeks ago however escalated a few days ago that prompted her to be admitted through the ER at an outside institution. She was found to have an acute thoracic type B aortic dissection and was transferred here for however of care. SUBJ: 02/05 remains on labetalol infusion with good blood pressure control. Spiked fever 101.4. Pancultured chest x-ray pending. Conservative medical management and CT angiogram in a.m. 02/06: Overnight intermittently agitated. Required Ativan and Haldol. CXR 02/05 with L consolidation, effusion and enlarged cardiac silhouette. CTA chest abd pelvis ordered. Started empirically on Zosyn and azithromycin. No high fever reported 02/07: Remains on labetalol infusion at 3.5 mg/m. CT angiogram yesterday showed stable stat type B dissection. There was a moderate-sized left pleural effusion without infiltrate. No evidence of pneumonia I will discontinue azithromycin today DC Zosyn in 24 hours if cultures remain negative. Also give Lasix 20 mg 1, additional 200 mg by mouth labetalol and increase to 300 mg every 8 hours Objective Vital Signs Date Time Temp Pulse Resp B/P Pulse Ox O2 Delivery O2 Flow Rate FiO2 02/07/17 03:47 99.0 73 17 112/62 98 111/51 02/07/17 03:47 Nasal Cannula 4.00 Intake and Output 02/06/17 02/06/17 02/07/17 08:00 16:00 00:00 Intake Total 1490 ml 1518 ml Output Total 900 ml 650 ml Balance 590 ml 868 ml Result Diagram: 02/07/17 0430 02/07/17 0430 Other Results Laboratory Tests Test 02/06/17 08:52 Blood Gas Puncture Site ART LINE Blood Gas Patient Temperature 98.6 Blood Gas HCO3 23 mmol/L (22-26) Blood Gas Base Excess -1.1 mmol/L (-2-2) Blood Gas Oxygen Saturation 93 % (90-100) Arterial Blood pH 7.43 (7.380-7.420) Arterial Blood Partial 35 mmHg (38-42) Pressure CO2 Arterial Blood Partial 84 mmHg Pressure O2 (61-120) Arterial Blood Oxygen Content 14.5 Vol % (12.0-20.0) Arterial Blood 1.5 % (0-4) Carboxyhemoglobin Arterial Blood Methemoglobin 1.4 % (0-2) Blood Gas Hemoglobin 11.0 G/DL (12.0-16.0) Oxygen Delivery Device NASAL CANNULA Blood Gas Liter Flow 4 L/M Objective Remarks GENERAL: Well-nourished, well-developed patient. More alert today SKIN: Warm and dry. HEAD: Normocephalic. EYES: No scleral icterus. No injection or drainage. NECK: Supple, trachea midline. No JVD or lymphadenopathy. CARDIOVASCULAR: Regular rate and rhythm without murmurs, gallops, or rubs. Pulses are positive with Doppler bilateral lower extremity RESPIRATORY: Breath sounds diminished at bases. No accessory muscle use. GASTROINTESTINAL: Abdomen soft, mild diffuse tenderness, nondistended. MUSCULOSKELETAL: No cyanosis, or edema. BACK: Nontender without obvious deformity. No CVA tenderness. EXTREMITIES: No clubbing cyanosis or edema, peripheral pulses positive bilaterally NEURO: Alert awake. No focal deficits. More awake and oriented today A/P Assessment and Plan A/P Neuro: Metabolic encephalopathy/delirium ? Underlying mild cognitive impairment -Morphine and Tylenol for pain control -Ativan and Haldol as needed for anxiety -Patient may have mild underlying cognitive deficits CVS: Type B aortic dissection Hypertension - Vascular surgery Dr. Barbour - Tight blood pressure control.SBP goal less than 110, Labetalol drip at 3.5 mg per hour - By mouth labetalol 200 mg TID -increased to 300 mg every 8 hours, additional 200 mg by mouth 1. And increased Norvasc 2.5 mg daily to 5 mg daily 02/07/17 - CTA chest abd pelvis-stable Mario type B dissection. Moderate left pleural effusion probably sympathetic RESP: Moderate left effusion -DuoNeb q6 PRN. Aggressive pulmonary toilet -EzPAP, Acapella, IS -Empiric Zosyn -DC in 24 hours if cultures negative and DC azithromycin -Dr. Barbour requests no thoracentesis at this time-most likely sympathetic effusion GI: -Cardiac diet, Pepcid for GI prophylaxis : -Monitor renal function closely -Modi catheter ID: Fever -resolved LLL effusion did not appear infected -F/u blood cultures urine -negative to date -Discontinued Zosyn in 24 hours if cultures remain negative. DC azithromycin -Check urine for Legionella and pneumococcal antigen Endo Diabetes mellitus Hypokalemia - Insulin sliding scale - Electrolyte replacement per ICU protocol DVT GI prophylaxis - No chemical DVT prophylaxis due to aortic dissection - Teds SCDs and Pepcid Critical Care: Level 3 Yue Lester MD Feb 07, 2017 07:17
[2017-02-07] MEDS: SODIUM CHLOR 0.9% 1000 ML INJ 1,000 ML IV SCH (08:35)
[2017-02-07] MEDS: SODIUM CHLORIDE 0.9% FLUSH 10 ML FLUSH SCH ×2 (09:00→20:50)
[2017-02-07] MEDS ORDERED: amLODIPine BESYLATE 5 MG TAB PO SCH (09:00)
[2017-02-07] MEDS: FAMOTIDINE 20 MG/2 ML VIAL IV PUSH SCH ×2 (09:45→20:49)
[2017-02-07] MEDS: DOCUSATE SODIUM 100 MG CAP PO SCH ×2 (09:46→20:49)
--- NOTE | 2017-02-07 09:50 | PD.VS.PN ---
Subjective Subjective/Hospital Course Pt doing well today - bright and has no pain. Objective Vitals/I&O Date Time Temp Pulse Resp B/P Pulse Ox O2 Delivery O2 Flow Rate FiO2 02/07/17 07:39 95 Nasal Cannula 3.00 02/07/17 03:47 99.0 73 17 112/62 98 111/51 02/07/17 03:47 73 02/07/17 03:47 98 Nasal Cannula 4.00 02/06/17 23:47 98.4 81 17 121/78 98 113/62 02/06/17 23:47 98 Nasal Cannula 4.00 02/06/17 23:47 76 02/06/17 22:35 97 Nasal Cannula 3.00 02/06/17 19:31 99.6 83 18 123/64 98 119/62 02/06/17 19:31 98 Nasal Cannula 4.00 02/06/17 19:00 83 02/06/17 15:29 79 02/06/17 15:29 99.4 79 18 124/58 95 02/06/17 15:00 96 Nasal Cannula 4.00 02/06/17 11:00 82 02/06/17 11:00 95 Nasal Cannula 4.00 02/06/17 11:00 99.4 80 18 149/85 95 146/66 02/07/17 02/07/17 02/07/17 07:00 15:00 23:00 Intake Total 1724 ml Output Total 950 ml Balance 774 ml Physical Exam No distress Abdomen soft, NT Laboratory Laboratory Tests Test 02/07/17 04:30 White Blood Count 9.2 Red Blood Count 3.42 Hemoglobin 10.1 Hematocrit 30.0 Mean Corpuscular Volume 87.9 Mean Corpuscular Hemoglobin 29.5 Mean Corpuscular Hemoglobin 33.6 Concent Red Cell Distribution Width 14.2 Platelet Count 171 Mean Platelet Volume 8.4 Neutrophils (%) (Auto) 63.6 Lymphocytes (%) (Auto) 12.6 Monocytes (%) (Auto) 16.6 Eosinophils (%) (Auto) 6.8 Basophils (%) (Auto) 0.4 Neutrophils # (Auto) 5.8 Lymphocytes # (Auto) 1.2 Monocytes # (Auto) 1.5 Eosinophils # (Auto) 0.6 Basophils # (Auto) 0.0 CBC Comment DIFF FINAL Differential Comment Sodium Level 143 Potassium Level 3.4 Chloride Level 109 Carbon Dioxide Level 26.2 Anion Gap 8 Blood Urea Nitrogen 7 Creatinine 0.68 Estimat Glomerular Filtration 102 Rate Random Glucose 105 Calcium Level 8.3 Magnesium Level 1.9 Total Bilirubin 0.9 Aspartate Amino Transf 13 (AST/SGOT) Alanine Aminotransferase 13 (ALT/SGPT) Alkaline Phosphatase 56 Total Protein 5.7 Albumin 2.0 Date/Time Procedure Status Source Growth 02/05/17 08:45 Urine Culture - Final Complete Urine Catheterized Urine NO GROWTH IN 48 HOURS. 02/05/17 07:45 Aerobic Blood Culture - Preliminary Resulted Blood Peripheral NO GROWTH IN 1 DAY 02/05/17 07:45 Anaerobic Blood Culture - Preliminary Resulted Blood Peripheral NO GROWTH IN 1 DAY Imaging Last 48 hours Impressions Chest X-Ray 02/07/17 0600 Signed Impressions: Service Date/Time: Tuesday, February 07, 2017 03:39 - CONCLUSION: 1. Left basilar airspace disease and pleural effusion. Findings similar to February 05. Cardiomegaly. Miller Juarez MD Aorta CTA 02/06/17 0000 Signed Impressions: Service Date/Time: Monday, February 06, 2017 10:25 - CONCLUSION: 1. [place] type B aortic dissection beginning approximately 4 cm distal to the left subclavian artery origin and terminating just cephalad to the renal artery origins. The only vessel arising from the false lumen is the celiac. 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 There is some fenestration to the dissection flap as there is equal opacification of the true and false lumens. Arch vessels are not involved. 2. Moderate size left pleural effusion. 3. Cardiomegaly. 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 Labetolol for goal SBP <110. Transition IV gtt to po 2. Watch for recurrent back/chest/abdominal pain 3. CTA yesterday showed stable aortic dissection and new L pleural effusion but appeared simple/reactive and not blood 4. Normalize - OOB, cardiac diet 5. Potentially out of ICU within1-2 days Herman Barbour MD FACS meat stuffer [facility] - Heart and Vascular at [facility] [phone] Herman Barbour MD Feb 07, 2017 09:50
[2017-02-07] MEDS: LORazepam 2 MG/ML VIAL IV PRN (21:49)
[2017-02-08] VITALS (8 sets, daily range): BP systolic 84–136; BP diastolic 46–85; PULSE 64–86; RESP 12–20; TEMP 97.6–98.9; O2SAT 92–96
[2017-02-08] MEDS: LABETALOL INJ 500 MG in SODIUM CHLORIDE 0.9% INJ 150 ML IV SCH ×8 (00:22→20:39)
[2017-02-08] MEDS: PIPERACIL-TAZO 3.375 GM PREMIX 50 ML IV SCH (03:29)
[2017-02-08] MEDS: CHLORHEXIDINE GLUCONATE 2 % 1 PACK (2 CLOTHS) TOP SCH (04:00)
[2017-02-08 06:17] LABS: BASOPHIL % 0.4 % (0.0-2.0); EOSINOPHIL # 0.5 TH/MM3 (0-0.4); EOSINOPHIL % 6.8 % (0.0-4.0); HEMATOCRIT 30.2 % (35.0-46.0); HEMO FLAGS DIFF FINAL; LYMPH % 13.8 % (9.0-44.0); LYMPHOCYTE # 1.1 TH/MM3 (1.0-4.8); MEAN CELL VOLUME 88.8 FL (80.0-100.0); MEAN CORPUSCULAR HEMOGLOBIN 29.5 PG (27.0-34.0); MEAN CORPUSCULAR HGB CONC 33.3 % (32.0-36.0); MONO % 15.5 % (0.0-8.0); NEUT % 63.5 % (16.0-70.0); PLATELET COUNT 196 TH/MM3 (150-450); RED BLOOD COUNT 3.41 MIL/MM3 (4.00-5.30); RED CELL DISTRIBUTION WIDTH 14.3 % (11.6-17.2); WHITE BLOOD COUNT 7.9 TH/MM3 (4.0-11.0)
[2017-02-08 06:23] LABS: ALT (GPT) 15 U/L (10-53); ANION GAP 7 MEQ/L (5-15); AST (GOT) 16 U/L (15-37); BLOOD UREA NITROGEN 5 MG/DL (7-18); CHLORIDE 112 MEQ/L (98-107); GLOMERULAR FILTRATION RATE 106 ML/MIN (>89); MAGNESIUM 1.8 MG/DL (1.5-2.5); POTASSIUM 3.5 MEQ/L (3.5-5.1); SODIUM (NA) 143 MEQ/L (136-145)
[2017-02-08 06:25] LABS: ALKALINE PHOSPHATASE 60 U/L (45-117); TOTAL BILIRUBIN ADULT 0.8 MG/DL (0.2-1.0)
[2017-02-08] MEDS: LABETALOL HCL 200 MG TAB PO SCH ×3 (06:25→22:05)
--- NOTE | 2017-02-08 06:37 | RADRPT ---
EXAM DATE/TIME: 02/08/2017 05:08 [facility] COMPARISON: CHEST SINGLE AP, February 07, 2017, 3:39. INDICATIONS : Shortness of breath. MEDICAL HISTORY : None. SURGICAL HISTORY : None. ENCOUNTER: Subsequent ACUITY: 3 days PAIN SCORE: Non-responsive. LOCATION: Bilateral chest FINDINGS: A single view of the chest demonstrates left basilar airspace disease and left effusion. Right lung c lear. Atherosclerotic and tortuous aorta. CONCLUSION: 1. Left basilar airspace disease and left effusion. No pneumothorax. Miller Juarez MD on February 08, 2017 at 6:34 Board Certified Radiologist. This report was verified electronically.
[2017-02-08] MEDS: POTASSIUM CHLOR 20 MEQ PREMIX 100 ML IV PRN ×2 (06:46→11:45)
--- NOTE | 2017-02-08 08:38 | PD.VS.PN ---
Subjective Subjective/Hospital Course Pt doing well today - mild epigastric pain but appears comfortable in bed. Objective Vitals/I&O Date Time Temp Pulse Resp B/P Pulse Ox O2 Delivery O2 Flow Rate FiO2 02/08/17 07:00 98.4 68 20 95/46 96 02/08/17 07:00 96 Nasal Cannula 3.00 02/08/17 07:00 68 02/08/17 03:08 98.4 76 16 136/74 96 02/08/17 03:08 96 Nasal Cannula 3.00 02/08/17 03:08 72 02/07/17 23:10 72 02/07/17 23:10 98 Nasal Cannula 3.00 02/07/17 23:10 98.0 72 16 122/75 98 02/07/17 20:32 95 Nasal Cannula 3.00 02/07/17 19:17 98.4 81 18 140/76 98 Arterial Line 02/07/17 19:17 98 Nasal Cannula 3.00 02/07/17 19:00 81 02/07/17 15:00 95 Nasal Cannula 3.00 02/07/17 15:00 85 02/07/17 15:00 97.6 16 146/81 95 02/07/17 11:22 68 02/07/17 11:22 97 Nasal Cannula 3.00 02/07/17 11:22 97.4 75 16 114/54 97 02/08/17 02/08/17 02/08/17 07:00 15:00 23:00 Intake Total 1908 ml Output Total 1250 ml Balance 658 ml Physical Exam Abdomen soft, NT No chest pain Laboratory Laboratory Tests Test 02/08/17 04:48 White Blood Count 7.9 Red Blood Count 3.41 Hemoglobin 10.1 Hematocrit 30.2 Mean Corpuscular Volume 88.8 Mean Corpuscular Hemoglobin 29.5 Mean Corpuscular Hemoglobin 33.3 Concent Red Cell Distribution Width 14.3 Platelet Count 196 Mean Platelet Volume 8.3 Neutrophils (%) (Auto) 63.5 Lymphocytes (%) (Auto) 13.8 Monocytes (%) (Auto) 15.5 Eosinophils (%) (Auto) 6.8 Basophils (%) (Auto) 0.4 Neutrophils # (Auto) 5.0 Lymphocytes # (Auto) 1.1 Monocytes # (Auto) 1.2 Eosinophils # (Auto) 0.5 Basophils # (Auto) 0.0 CBC Comment DIFF FINAL Differential Comment Sodium Level 143 Potassium Level 3.5 Chloride Level 112 Carbon Dioxide Level 24.0 Anion Gap 7 Blood Urea Nitrogen 5 Creatinine 0.66 Estimat Glomerular Filtration 106 Rate Random Glucose 94 Calcium Level 8.9 Magnesium Level 1.8 Total Bilirubin 0.8 Aspartate Amino Transf 16 (AST/SGOT) Alanine Aminotransferase 15 (ALT/SGPT) Alkaline Phosphatase 60 Total Protein 6.0 Albumin 2.1 Date/Time Procedure Status Source Growth 02/05/17 08:45 Urine Culture - Final Complete Urine Catheterized Urine NO GROWTH IN 48 HOURS. 02/05/17 07:45 Aerobic Blood Culture - Preliminary Resulted Blood Peripheral NO GROWTH IN 2 DAYS 02/05/17 07:45 Anaerobic Blood Culture - Preliminary Resulted Blood Peripheral NO GROWTH IN 2 DAYS Imaging Last 48 hours Impressions Chest X-Ray 02/08/17 0600 Signed Impressions: Service Date/Time: Wednesday, February 08, 2017 05:08 - CONCLUSION: 1. Left basilar airspace disease and left effusion. No pneumothorax. Miller Juarez MD Chest X-Ray 02/07/17 06 Signed Impressions: Service Date/Time: Tuesday, February 07, 2017 03:39 - CONCLUSION: 1. Left basilar airspace disease and pleural effusion. Findings similar to February 05. Cardiomegaly. 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 Labetolol for goal SBP <110. Transition IV gtt to po 2. Watch for recurrent back/chest/abdominal pain 3. CTA showed stable aortic dissection and new L pleural effusion but appeared simple/reactive and not blood 4. Normalize - OOB, cardiac diet 5. Potentially out of ICU within1-2 days Herman Barbour MD FACS polymer chemist [facility] - Heart and Vascular at [facility] [phone] Herman Barbour MD Feb 08, 2017 08:38
[2017-02-08] MEDS: SODIUM CHLORIDE 0.9% FLUSH 10 ML FLUSH SCH ×2 (09:00→20:37)
[2017-02-08] MEDS: cloNIDine HCL 0.1 MG TAB PO SCH ×2 (09:01→20:36)
[2017-02-08] MEDS: FAMOTIDINE 20 MG/2 ML VIAL IV PUSH SCH ×2 (09:01→20:37)
[2017-02-08] MEDS: DOCUSATE SODIUM 100 MG CAP PO SCH ×2 (09:01→20:36)
[2017-02-08] MEDS: amLODIPine BESYLATE 5 MG TAB PO SCH (09:01)
--- NOTE | 2017-02-08 09:01 | HHI.CCPN ---
Subjective Remarks/Hospital Course 76-year-old very pleasant female resented to [facility] with chest pain and abdominal pain that started a few weeks ago however escalated a few days ago that prompted her to be admitted through the ER at an outside institution. She was found to have an acute thoracic type B aortic dissection and was transferred here for however of care. SUBJ: 02/05 remains on labetalol infusion with good blood pressure control. Spiked fever 101.4. Pancultured chest x-ray pending. Conservative medical management and CT angiogram in a.m. 02/06: Overnight intermittently agitated. Required Ativan and Haldol. CXR 02/05 with L consolidation, effusion and enlarged cardiac silhouette. CTA chest abd pelvis ordered. Started empirically on Zosyn and azithromycin. No high fever reported 02/07: Remains on labetalol infusion at 3.5 mg/m. CT angiogram yesterday showed stable stat type B dissection. There was a moderate-sized left pleural effusion without infiltrate. No evidence of pneumonia I will discontinue azithromycin today DC Zosyn in 24 hours if cultures remain negative. Also give Lasix 20 mg 1, additional 200 mg by mouth labetalol and increase to 300 mg every 8 hours 02/08: Remains on 4 mg /min of Labetalol gtt. Will increase Norvasc to 10 mg daily (home dose) and resume home clonidine 0.1mg BID. D/W Dr. Barbour. SBP target remains <110 Objective Vital Signs Date Time Temp Pulse Resp B/P Pulse Ox O2 Delivery O2 Flow Rate FiO2 02/08/17 07:00 98.4 68 20 95/46 96 02/08/17 07:00 Nasal Cannula 3.00 Intake and Output 02/07/17 02/07/17 02/08/17 08:00 16:00 00:00 Intake Total 1724 ml 1527 ml Output Total 950 ml 1300 ml Balance 774 ml 227 ml Result Diagram: 02/08/17 0448 02/08/17 0448 Objective Remarks GENERAL: Well-nourished, well-developed patient. Alert awake SKIN: Warm and dry. HEAD: Normocephalic. EYES: No scleral icterus. No injection or drainage. NECK: Supple, trachea midline. No JVD or lymphadenopathy. CARDIOVASCULAR: Regular rate and rhythm without murmurs, gallops, or rubs. Pulses are positive with Doppler bilateral lower extremity RESPIRATORY: Breath sounds diminished at bases. No accessory muscle use. GASTROINTESTINAL: Abdomen soft, mild diffuse tenderness, nondistended. MUSCULOSKELETAL: No cyanosis, or edema. BACK: Nontender without obvious deformity. No CVA tenderness. EXTREMITIES: No clubbing cyanosis or edema, peripheral pulses positive bilaterally NEURO: Alert awake oriented, following commands. No focal deficits. Urinary Catheter: Yes Assessment to: Continue A/P Assessment and Plan A/P Neuro: Metabolic encephalopathy Underlying mild cognitive impairment -Morphine and Tylenol for pain control -Ativan and Haldol as needed for anxiety, minimize sedation -Patient may have mild underlying cognitive deficits CVS: Type B aortic dissection Hypertension - Vascular surgery Dr. Barbour - Tight blood pressure control.SBP goal less than 110, Labetalol drip at 4 mg per hour - By mouth labetalol 300 mg every 8 hours, Increased Norvasc 10 mg daily. Start Clonidine 0.1 mg po BID (home med) - At home takes metoprolol, clonidine, Norvasc, and Lasix. Place on Lasix 20 mg daily with KCL 20 daily - CTA chest abd pelvis-stable [place] type B dissection. Moderate left pleural effusion probably sympathetic - 2d Echo today RESP: Moderate left effusion -DuoNeb q6 PRN. Aggressive pulmonary toilet -EzPAP, Acapella, IS -Empiric Zosyn -DC in 24 hours if cultures negative and DC azithromycin -Dr. Barbour requests no thoracentesis at this time-most likely sympathetic effusion-resume lasix and f/u CXR am GI: -Cardiac diet, Pepcid for GI prophylaxis : -Monitor renal function closely -Modi catheter ID: Fever -resolved LLL effusion did not appear infected -Blood cultures urine -negative to date -Discontinue Zosyn Endo Diabetes mellitus Hypokalemia - Insulin sliding scale - Electrolyte replacement per ICU protocol DVT GI prophylaxis - No chemical DVT prophylaxis due to aortic dissection - Teds SCDs and Pepcid Critical Care: Level 3. Continue ICU care Yue Lester MD Feb 08, 2017 09:01
[2017-02-08] MEDS ORDERED: FUROSEMIDE 20 MG TAB PO SCH (10:00)
[2017-02-08] MEDS: POTASSIUM CHLORIDE 20 MEQ CONTROLLED RELEASE TAB PO SCH (11:55)
--- NOTE | 2017-02-08 13:51 | EC ---
Study Study Date:02/08/2017 STUDY CONCLUSIONS SUMMARY - Left ventricle: The cavity size was normal. Wall thickness was normal. Systolic function was mildly to moderately reduced. The estimated ejection fraction was 40%, in the range of 40% to 45%. Wall motion was normal; there were no regional wall motion abnormalities. - Aortic valve: Trace regurgitation. - Mitral valve: Moderate regurgitation directed eccentrically and toward the free wall. - Left atrium: The atrium was mildly to moderately dilated. - Tricuspid valve: Mild regurgitation. - Pulmonary arteries: PA peak pressure: 38mm Hg (S). - Pericardium, extracardiac: A trivial pericardial effusion was identified. There was a large left pleural effusion. If LV function is below 40, please consider prescribing an ACEI or ARB or document rationale for non-use. PROCEDURE DATA STUDY STATUS: Elective. Procedure: Transthoracic echocardiography. Image quality was good. Scanning was performed from the parasternal, apical, and subcostal acoustic windows. Study completion: The patient tolerated the procedure well. Transthoracic echocardiography. M-mode, complete 2D, complete spectral Doppler, and color Doppler. Patient status: Inpatient. CARDIAC ANATOMY LEFT VENTRICLE: The cavity size was normal. Wall thickness was normal. Systolic function was mildly to moderately reduced. The estimated ejection fraction was 40%, in the range of 40% to 45%. Wall motion was normal; there were no regional wall motion abnormalities. AORTIC VALVE: Trileaflet; normal thickness leaflets. Doppler: Transvalvular velocity was within the normal range. There was no stenosis. Trace regurgitation. AORTA: Aortic root: The aortic root was normal in size. MITRAL VALVE: Structurally normal valve. Doppler: Transvalvular velocity was within the normal range. There was no evidence for stenosis. Moderate regurgitation directed eccentrically and toward the free wall. Mean gradient: 2mm Hg (D). LEFT ATRIUM: The atrium was mildly to moderately dilated. RIGHT VENTRICLE: The cavity size was normal. Wall thickness was normal. PULMONIC VALVE: Doppler: Transvalvular velocity was within the normal range. There was no evidence for stenosis. No regurgitation. TRICUSPID VALVE: Structurally normal valve. Doppler: Transvalvular velocity was within the normal range. Mild regurgitation. PULMONARY ARTERY: The main pulmonary artery was normal-sized. Systolic pressure was within the normal range. RIGHT ATRIUM: The atrium was normal in size. PERICARDIUM: A trivial pericardial effusion was identified. SYSTEMIC VEINS: Inferior vena cava: The vessel was normal in size. Pleura: There was a large left pleural effusion. BASIC MEASUREMENTS ADULT NORMAL Left ventricle LV internal dimension, ED, chordal level, 44.9 mm 43-52 PLAX LV posterior wall thickness, ED 6.84 mm IVS/LVPW ratio, ED 1.15 <1.3 Ventricular septum Septal thickness, ED 7.9 mm Left atrium Anterior-posterior dimension 47 mm Right ventricle RV internal dimension, ED, PLAX 23.6 mm 19-38 DOPPLER MEASUREMENTS ADULT NORMAL Main pulmonary artery Pressure, S *38 mm Hg =30 Aortic valve Peak velocity, S 147 cm/s VTI, S 32.4 cm Mitral valve Peak E-wave velocity 64.2 cm/s Peak A-wave velocity 67.1 cm/s Mean velocity, D 58.1 cm/s Mean gradient, D 2 mm Hg Peak E/A ratio 1 Maximal regurgitant velocity 558 cm/s Tricuspid valve Regurgitant peak velocity 269 cm/s Peak RV-RA gradient, S 29 mm Hg Maximal regurgitant velocity 269 cm/s Systemic veins Estimated CVP 5 mm Hg Right ventricle RV pressure, S *38 mm Hg <30 LEGEND: Mean values are shown as u=mean value. Asterisk (*) prado values outside specified normal range. Prepared and signed by Otoniel De Paz [id number]
[2017-02-08] MEDS: LORazepam 2 MG/ML VIAL IV PRN (20:36)
[2017-02-09] VITALS (9 sets, daily range): BP systolic 114–135; BP diastolic 52–63; PULSE 60–64; RESP 12–20; TEMP 97.7–98.4; O2SAT 94–97
[2017-02-09] MEDS: LABETALOL INJ 500 MG in SODIUM CHLORIDE 0.9% INJ 150 ML IV SCH ×4 (00:10→08:22)
[2017-02-09] MEDS: CHLORHEXIDINE GLUCONATE 2 % 1 PACK (2 CLOTHS) TOP SCH (04:00)
[2017-02-09] MEDS: LABETALOL HCL 200 MG TAB PO SCH ×3 (05:40→21:29)
[2017-02-09] MEDS ORDERED: cloNIDine HCL 0.2 MG TAB PO STA (07:09)
--- NOTE | 2017-02-09 07:22 | HHI.CCPN ---
Subjective Remarks/Hospital Course 76-year-old very pleasant female resented to [facility] with chest pain and abdominal pain that started a few weeks ago however escalated a few days ago that prompted her to be admitted through the ER at an outside institution. She was found to have an acute thoracic type B aortic dissection and was transferred here for however of care. SUBJ: 02/05 remains on labetalol infusion with good blood pressure control. Spiked fever 101.4. Pancultured chest x-ray pending. Conservative medical management and CT angiogram in a.m. 02/06: Overnight intermittently agitated. Required Ativan and Haldol. CXR 02/05 with L consolidation, effusion and enlarged cardiac silhouette. CTA chest abd pelvis ordered. Started empirically on Zosyn and azithromycin. No high fever reported 02/07: Remains on labetalol infusion at 3.5 mg/m. CT angiogram yesterday showed stable stat type B dissection. There was a moderate-sized left pleural effusion without infiltrate. No evidence of pneumonia I will discontinue azithromycin today DC Zosyn in 24 hours if cultures remain negative. Also give Lasix 20 mg 1, additional 200 mg by mouth labetalol and increase to 300 mg every 8 hours 02/08: Remains on 4 mg /min of Labetalol gtt. Will increase Norvasc to 10 mg daily (home dose) and resume home clonidine 0.1mg BID. D/W Dr. Barboru. SBP target remains <110 02/09: On 3mg/min of labetalol, despite resuming clonidine and Lasix (home meds) and increasing Norvasc. Today will increase clonidine to 0.2 mg q8 and change lasix to BID. required 1 mg Ativan for agitation at 9pm yesterday, now oriented Objective Vital Signs Date Time Temp Pulse Resp B/P Pulse Ox O2 Delivery O2 Flow Rate FiO2 02/09/17 03:00 95 Nasal Cannula 3.00 02/09/17 03:00 98.1 60 12 121/63 Intake and Output 02/08/17 02/08/17 02/09/17 08:00 16:00 00:00 Intake Total 1908 ml 2080 ml Output Total 1250 ml 1750 ml Balance 658 ml 330 ml Result Diagram: 02/08/17 0448 02/08/17 0448 Objective Remarks GENERAL: Well-nourished, well-developed patient. Somnolent but wakes up easily and follows commands SKIN: Warm and dry. HEAD: Normocephalic. EYES: No scleral icterus. No injection or drainage. NECK: Supple, trachea midline. No JVD or lymphadenopathy. CARDIOVASCULAR: Regular rate and rhythm without murmurs, gallops, or rubs. Pulses are positive with Doppler bilateral lower extremity RESPIRATORY: Breath sounds diminished at bases, more so on L side. No accessory muscle use. GASTROINTESTINAL: Abdomen soft, mild diffuse tenderness, nondistended. MUSCULOSKELETAL: No cyanosis, or edema. BACK: Nontender without obvious deformity. No CVA tenderness. EXTREMITIES: No clubbing cyanosis or edema, peripheral pulses positive bilaterally NEURO: Alert awake oriented, following commands. No focal deficits. Urinary Catheter: Yes Assessment to: Continue A/P Assessment and Plan A/P Neuro: Metabolic encephalopathy Underlying mild cognitive impairment -Morphine and Tylenol for pain control -Ativan and Haldol as needed for anxiety, otherwise minimize sedation -Patient may have mild underlying cognitive deficits CVS: Type B aortic dissection Hypertension - Vascular surgery Dr. Barbour - Tight blood pressure control.SBP goal less than 110, Labetalol drip at 3 mg per hour - By mouth labetalol 300 mg every 8 hours, Norvasc 10 mg daily. Increase Clonidine 0. 2mg po q8h, and additional 0.2 mg x1 now - At home takes metoprolol, clonidine, Norvasc, and Lasix. Increase Lasix to 20 mg BID with KCL 20 daily - CTA chest abd pelvis-stable [place] type B dissection. Moderate left pleural effusion probably sympathetic - 2d Echo 02/08. EF 45%, Moderate MR. Cardiology consult once more stable RESP: Moderate left effusion -DuoNeb q6 PRN. Aggressive pulmonary toilet -EzPAP, Acapella, IS -Empiric Zosyn -DCd -Dr. Barbour requests no thoracentesis at this time-most likely sympathetic effusion-resumed lasix and f/u CXR am GI: -Cardiac diet, Pepcid for GI prophylaxis : -Monitor renal function closely -Modi catheter ID: Fever -resolved LLL effusion did not appear infected -Blood cultures urine -negative to date -Discontinue Zosyn Endo Diabetes mellitus Hypokalemia - Insulin sliding scale - Electrolyte replacement per ICU protocol DVT GI prophylaxis - No chemical DVT prophylaxis due to aortic dissection - Teds SCDs and Pepcid Critical Care: Level 3. Continue ICU care Yue Lester MD Feb 09, 2017 07:22
[2017-02-09 08:16] LABS: ALT (GPT) 16 U/L (10-53); ANION GAP 8 MEQ/L (5-15); AST (GOT) 20 U/L (15-37); BICARBONATE 23.3 MEQ/L (21.0-32.0); BLOOD UREA NITROGEN 4 MG/DL (7-18); CHLORIDE 111 MEQ/L (98-107); GLOMERULAR FILTRATION RATE 109 ML/MIN (>89); POTASSIUM 3.7 MEQ/L (3.5-5.1); SODIUM (NA) 142 MEQ/L (136-145)
[2017-02-09 08:19] LABS: ALKALINE PHOSPHATASE 59 U/L (45-117); TOTAL BILIRUBIN ADULT 0.5 MG/DL (0.2-1.0)
[2017-02-09] MEDS ORDERED: LORazepam 2 MG/ML VIAL IV PRN (09:00)
--- NOTE | 2017-02-09 09:07 | RADRPT ---
EXAM DATE/TIME: 02/09/2017 08:32 [facility] COMPARISON: CHEST SINGLE AP, February 08, 2017, 5:08. INDICATIONS : Respiratory disease MEDICAL HISTORY : None. SURGICAL HISTORY : None. ENCOUNTER: Subsequent ACUITY: 4 - 6 days PAIN SCORE: Non-responsive. LOCATION: chest FINDINGS: A single portable frontal view the chest shows persistent moderate cardiomegaly. A worsening left eff usion and left lung intraalveolar infiltrate. Right lung remains clear. No effusion on the right. A s coliotic and degenerative spine. Degenerative changes involving the shoulders bilaterally. CONCLUSION: Worsening left effusion and left lung infiltrate. Cardiomegaly. Ferny Harris Jr., MD on February 09, 2017 at 9:04 Board Certified Radiologist. This report was verified electronically.
[2017-02-09] MEDS: FAMOTIDINE 20 MG/2 ML VIAL IV PUSH SCH ×2 (09:26→21:29)
[2017-02-09] MEDS: amLODIPine BESYLATE 5 MG TAB PO SCH (09:26)
[2017-02-09] MEDS: FUROSEMIDE 20 MG TAB PO SCH ×2 (09:26→21:30)
[2017-02-09] MEDS: DOCUSATE SODIUM 100 MG CAP PO SCH ×2 (09:27→21:28)
[2017-02-09] MEDS: POTASSIUM CHLORIDE 20 MEQ CONTROLLED RELEASE TAB PO SCH (09:27)
[2017-02-09] MEDS: SODIUM CHLORIDE 0.9% FLUSH 10 ML FLUSH SCH ×2 (10:19→21:29)
[2017-02-09] MEDS ORDERED: LABETALOL INJ 500 MG in SODIUM CHLORIDE 0.9% INJ 150 ML IV SCH (12:00)
--- NOTE | 2017-02-09 13:18 | PD.VS.PN ---
Subjective Subjective/Hospital Course Pt somnolent this morning after Ativan last night. No recurrent pain. Objective Vitals/I&O Date Time Temp Pulse Resp B/P Pulse Ox O2 Delivery O2 Flow Rate FiO2 02/09/17 11:28 64 02/09/17 11:10 94 Nasal Cannula 3.00 02/09/17 11:09 97.7 64 18 114/59 94 02/09/17 10:10 94 Nasal Cannula 3.00 02/09/17 08:45 94 Nasal Cannula 3.00 02/09/17 08:42 98.3 64 14 135/60 94 02/09/17 07:00 63 02/09/17 03:00 95 Nasal Cannula 3.00 02/09/17 03:00 98.1 60 12 121/63 95 02/09/17 03:00 60 02/08/17 23:00 69 02/08/17 23:00 98.9 64 12 126/71 95 02/08/17 23:00 95 Nasal Cannula 3.00 02/08/17 20:15 94 Nasal Cannula 3.00 02/08/17 19:00 92 Nasal Cannula 3.00 02/08/17 19:00 98.9 72 18 134/85 92 02/08/17 19:00 65 02/08/17 15:00 69 02/08/17 15:00 96 Nasal Cannula 3.00 02/08/17 15:00 97.6 69 20 84/52 94 02/09/17 02/09/17 02/09/17 07:00 15:00 23:00 Intake Total 1990 ml Output Total 800 ml Balance 1190 ml Physical Exam resting comfortably, no TTP; Laboratory Laboratory Tests Test 02/09/17 07:38 Sodium Level 142 Potassium Level 3.7 Chloride Level 111 Carbon Dioxide Level 23.3 Anion Gap 8 Blood Urea Nitrogen 4 Creatinine 0.64 Estimat Glomerular Filtration 109 Rate Random Glucose 92 Calcium Level 9.0 Total Bilirubin 0.5 Aspartate Amino Transf 20 (AST/SGOT) Alanine Aminotransferase 16 (ALT/SGPT) Alkaline Phosphatase 59 Total Protein 6.3 Albumin 2.1 Date/Time Procedure Status Source Growth 02/05/17 08:45 Urine Culture - Final Complete Urine Catheterized Urine NO GROWTH IN 48 HOURS. 02/05/17 07:45 Aerobic Blood Culture - Preliminary Resulted Blood Peripheral NO GROWTH IN 4 DAYS 02/05/17 07:45 Anaerobic Blood Culture - Preliminary Resulted Blood Peripheral NO GROWTH IN 4 DAYS Imaging Last 48 hours Impressions Chest X-Ray 02/09/17 0000 Signed Impressions: Service Date/Time: January 08:32 - CONCLUSION: Worsening left effusion and left lung infiltrate. Cardiomegaly. Ferny Harris Jr., MD Chest X-Ray 02/08/17 0600 Signed Impressions: Service Date/Time: Wednesday, February 08, 2017 05:08 - CONCLUSION: 1. Left basilar airspace disease and left effusion. No pneumothorax. 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 Labetolol for goal SBP <110. Transition IV gtt to po 2. Watch for recurrent back/chest/abdominal pain 3. Normalize - OOB, cardiac diet 4. Transfer to floor when off IV meds for bp control Herman Barbour MD FACS bulk materials handling plant operator [facility] [phone] Herman Barbour MD Feb 09, 2017 13:18
[2017-02-09] MEDS: cloNIDine HCL 0.2 MG TAB PO SCH ×2 (13:21→21:29)
[2017-02-09] MEDS: SODIUM CHLORIDE 0.9% IV SCH ×2 (16:16→21:34)
[2017-02-09] MEDS: LABETALOL IV SCH ×2 (16:16→21:34)
[2017-02-09] MEDS: ENALAPRILAT 2.5 MG/2 ML VIAL IV PUSH PRN (21:30)
[2017-02-10] VITALS (11 sets, daily range): BP systolic 79–132; BP diastolic 42–68; PULSE 64–82; RESP 16–20; TEMP 98.4–99.1; O2SAT 93–96
[2017-02-10] MEDS: LABETALOL HCL 300 MG TAB PO SCH ×3 (02:00→14:00)
[2017-02-10] MEDS ORDERED: LABETALOL HCL 200 MG TAB ONE ×2 (02:44→08:18)
[2017-02-10] MEDS: SODIUM CHLORIDE 0.9% IV SCH (02:46)
[2017-02-10] MEDS: LABETALOL IV SCH (02:46)
[2017-02-10] MEDS: CHLORHEXIDINE GLUCONATE 2 % 1 PACK (2 CLOTHS) TOP SCH (04:00)
[2017-02-10] MEDS: ENALAPRILAT 2.5 MG/2 ML VIAL IV PUSH PRN (04:13)
[2017-02-10 04:36] LABS: AUTOMATED NEUTROPHIL # 4.4 TH/MM3 (1.8-7.7); BASOPHIL % 0.6 % (0.0-2.0); EOSINOPHIL # 0.6 TH/MM3 (0-0.4); EOSINOPHIL % 7.7 % (0.0-4.0); HEMATOCRIT 31.6 % (35.0-46.0); HEMO FLAGS DIFF FINAL; LYMPH % 13.2 % (9.0-44.0); MEAN CORPUSCULAR HEMOGLOBIN 29.1 PG (27.0-34.0); MEAN CORPUSCULAR HGB CONC 33.1 % (32.0-36.0); MONO % 16.9 % (0.0-8.0); NEUT % 61.6 % (16.0-70.0); PLATELET COUNT 267 TH/MM3 (150-450); RED BLOOD COUNT 3.59 MIL/MM3 (4.00-5.30); RED CELL DISTRIBUTION WIDTH 14.1 % (11.6-17.2); WHITE BLOOD COUNT 7.2 TH/MM3 (4.0-11.0)
[2017-02-10] MEDS: cloNIDine HCL 0.2 MG TAB PO SCH (05:00)
[2017-02-10 06:17] LABS: ALKALINE PHOSPHATASE 64 U/L (45-117); ALT (GPT) 18 U/L (10-53); AST (GOT) 21 U/L (15-37); BLOOD UREA NITROGEN 4 MG/DL (7-18); CHLORIDE 108 MEQ/L (98-107); GLOMERULAR FILTRATION RATE 106 ML/MIN (>89); MAGNESIUM 1.7 MG/DL (1.5-2.5); POTASSIUM 3.4 MEQ/L (3.5-5.1); SODIUM (NA) 143 MEQ/L (136-145); TOTAL BILIRUBIN ADULT 0.4 MG/DL (0.2-1.0)
[2017-02-10 06:18] LABS: ANION GAP 8 MEQ/L (5-15); BICARBONATE 26.6 MEQ/L (21.0-32.0)
--- NOTE | 2017-02-10 06:21 | RADRPT ---
EXAM DATE/TIME: 02/10/2017 04:48 [facility] COMPARISON: CHEST SINGLE AP, February 05, 2017, 7:20. CTA THORACIC ABDOMINAL AORTA W 3D RECON, February 06, 2017, 10:2 5. CHEST SINGLE AP, February 09, 2017, 8:32. INDICATIONS : Shortness of breath. MEDICAL HISTORY : Hypertension. SURGICAL HISTORY : None. ENCOUNTER: Subsequent ACUITY: 4 - 6 days PAIN SCORE: Non-responsive. LOCATION: Bilateral chest FINDINGS: Portable AP view of the chest demonstrates a stable cardiac silhouette size with abnormal enlargement of the aortic arch with rightward deviation of the trachea. There is a moderate size left pleural ef fusion with associated airspace opacity. Right lung demonstrates no abnormality. No pneumothorax is v isualized. CONCLUSION: 1. Stable chest x-ray with moderate size left pleural effusion with associated volume loss and/or air space consolidation. 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 Trevon Wilson MD on February 10, 2017 at 6:18 Board Certified Radiologist. This report was verified electronically.
[2017-02-10] MEDS ORDERED: FUROSEMIDE 20 MG/2 ML VIAL IV PUSH ONE (08:00)
--- NOTE | 2017-02-10 08:09 | HHI.CCPN ---
Subjective Remarks/Hospital Course 76-year-old very pleasant female resented to [facility] with chest pain and abdominal pain that started a few weeks ago however escalated a few days ago that prompted her to be admitted through the ER at an outside institution. She was found to have an acute thoracic type B aortic dissection and was transferred here for however of care. SUBJ: 02/05 remains on labetalol infusion with good blood pressure control. Spiked fever 101.4. Pancultured chest x-ray pending. Conservative medical management and CT angiogram in a.m. 02/06: Overnight intermittently agitated. Required Ativan and Haldol. CXR 02/05 with L consolidation, effusion and enlarged cardiac silhouette. CTA chest abd pelvis ordered. Started empirically on Zosyn and azithromycin. No high fever reported 02/07: Remains on labetalol infusion at 3.5 mg/m. CT angiogram yesterday showed stable stat type B dissection. There was a moderate-sized left pleural effusion without infiltrate. No evidence of pneumonia I will discontinue azithromycin today DC Zosyn in 24 hours if cultures remain negative. Also give Lasix 20 mg 1, additional 200 mg by mouth labetalol and increase to 300 mg every 8 hours 02/08: Remains on 4 mg /min of Labetalol gtt. Will increase Norvasc to 10 mg daily (home dose) and resume home clonidine 0.1mg BID. D/W Dr. Barbour. SBP target remains <110 02/09: On 3mg/min of labetalol, despite resuming clonidine and Lasix (home meds) and increasing Norvasc. Today will increase clonidine to 0.2 mg q8 and change lasix to BID. required 1 mg Ativan for agitation at 9pm yesterday, now oriented 02/10: remains on labetalol drip. otherwise tolerating diet. Objective Vital Signs Date Time Temp Pulse Resp B/P Pulse Ox O2 Delivery O2 Flow Rate FiO2 02/10/17 07:40 93 Nasal Cannula 2.00 02/10/17 07:39 67 02/10/17 07:38 98.8 16 132/68 Intake and Output 02/09/17 02/09/17 02/10/17 08:00 16:00 00:00 Intake Total 1990 ml 1180 ml Output Total 800 ml Balance 1190 ml 1180 ml Result Diagram: 02/10/1731402/10/17314 Objective Remarks GENERAL: elderly female, lying in bed. SKIN: Warm and dry. HEAD: Normocephalic. EYES: No scleral icterus. No injection or drainage. NECK: trachea midline. No JVD CARDIOVASCULAR: normal rate, regular rhythm. RESPIRATORY: Breath sounds diminished at bases, more so on L side. No accessory muscle use. GASTROINTESTINAL: Abdomen soft, mild diffuse tenderness, nondistended. MUSCULOSKELETAL: No cyanosis, or edema. BACK: Nontender without obvious deformity. EXTREMITIES: No clubbing cyanosis or edema, peripheral pulses positive bilaterally NEURO: Alert awake oriented, following commands. No focal deficits. A/P Assessment and Plan A/P Neuro: Metabolic encephalopathy Underlying mild cognitive impairment -Morphine and Tylenol for pain control -Haldol as needed for agitation. -Patient may have mild underlying cognitive deficits -melatonin for improved sleep/wake cycle. CVS: Type B aortic dissection Hypertension - Vascular surgery Dr. Barbour - Liberalize SBP goals to < 130 this morning, given that patient will likely not be able to accomplish < 110 at home. - Hypetension regimen: Labetalol 300mg q6h amlodipine 10mg po qAM lasix 20mg po bid increase clonidine to 0.3mg po q8h start lisinopril 20mg po daily start hydralazine 50mg po q8h - prn hydralazine and labetalol - wean labetalol drip with goal of being off labetalol drip today. - At home takes metoprolol, clonidine, Norvasc, and Lasix. Increase Lasix to 20 mg BID with KCL 20 daily - CTA chest abd pelvis-stable [place] type B dissection. Moderate left pleural effusion probably sympathetic - 2d Echo 02/08. EF 45%, Moderate MR. Cardiology consult once more stable RESP: Moderate left effusion -DuoNeb q6 PRN. Aggressive pulmonary toilet -EzPAP, Acapella, IS -Empiric Zosyn -DCd GI: -Cardiac diet, Pepcid for GI prophylaxis : -Monitor renal function closely -d/c christian catheter ID: Fever -resolved LLL effusion did not appear infected -Blood cultures urine -negative to date -s/p empiric zosyn Endo Diabetes mellitus Hypokalemia - Insulin sliding scale - Electrolyte replacement per ICU protocol DVT GI prophylaxis - will discuss with Dr. Barbour starting chemical DVT prophylaxis. - Teds SCDs and Pepcid Dispo: could go to the floor if we get her off labetalol drip. Alpesh Cornelius MD Feb 10, 2017 08:09
[2017-02-10] MEDS: hydrALAZINE HCL 50 MG TAB PO SCH ×3 (08:20→21:11)
--- NOTE | 2017-02-10 08:42 | PD.VS.PN ---
Subjective Subjective/Hospital Course Pt without pain this morning. No appetite but otherwise ok Still controlling BP Objective Vitals/I&O Date Time Temp Pulse Resp B/P Pulse Ox O2 Delivery O2 Flow Rate FiO2 02/10/17 07:40 93 Nasal Cannula 2.00 02/10/17 07:39 67 02/10/17 07:38 98.8 68 16 132/68 93 02/10/17 07:11 93 Nasal Cannula 2.00 02/10/17 04:00 68 02/10/17 04:00 94 Nasal Cannula 2.00 02/10/17 04:00 98.8 67 16 127/68 94 02/10/17 00:00 66 18 117/59 96 02/10/17 00:00 66 02/10/17 00:00 96 Nasal Cannula 2.00 02/09/17 20:43 97 Nasal Cannula 2.00 02/09/17 20:00 98.0 63 20 114/63 97 02/09/17 20:00 97 Nasal Cannula 2.00 02/09/17 20:00 64 02/09/17 15:43 63 02/09/17 15:43 95 Nasal Cannula 3.00 02/09/17 15:43 98.4 63 18 114/52 96 02/09/17 11:28 64 02/09/17 11:10 94 Nasal Cannula 3.00 02/09/17 11:09 97.7 64 18 114/59 94 02/09/17 10:10 94 Nasal Cannula 3.00 02/09/17 08:45 94 Nasal Cannula 3.00 02/09/17 08:42 98.3 64 14 135/60 94 02/10/17 02/10/17 02/10/17 07:00 15:00 23:00 Intake Total 727 ml Output Total 1950 ml Balance -1223 ml Physical Exam Abdomen soft, NT, not distended Laboratory Laboratory Tests Test 02/10/17 03:15 White Blood Count 7.2 Red Blood Count 3.59 Hemoglobin 10.4 Hematocrit 31.6 Mean Corpuscular Volume 88.0 Mean Corpuscular Hemoglobin 29.1 Mean Corpuscular Hemoglobin 33.1 Concent Red Cell Distribution Width 14.1 Platelet Count 267 Mean Platelet Volume 8.1 Neutrophils (%) (Auto) 61.6 Lymphocytes (%) (Auto) 13.2 Monocytes (%) (Auto) 16.9 Eosinophils (%) (Auto) 7.7 Basophils (%) (Auto) 0.6 Neutrophils # (Auto) 4.4 Lymphocytes # (Auto) 1.0 Monocytes # (Auto) 1.2 Eosinophils # (Auto) 0.6 Basophils # (Auto) 0.0 CBC Comment DIFF FINAL Differential Comment Sodium Level 143 Potassium Level 3.4 Chloride Level 108 Carbon Dioxide Level 26.6 Anion Gap 8 Blood Urea Nitrogen 4 Creatinine 0.66 Estimat Glomerular Filtration 106 Rate Random Glucose 98 Calcium Level 8.9 Magnesium Level 1.7 Total Bilirubin 0.4 Aspartate Amino Transf 21 (AST/SGOT) Alanine Aminotransferase 18 (ALT/SGPT) Alkaline Phosphatase 64 Total Protein 6.4 Albumin 2.0 Date/Time Procedure Status Source Growth 02/05/17 08:45 Urine Culture - Final Complete Urine Catheterized Urine NO GROWTH IN 48 HOURS. Imaging Last 48 hours Impressions Chest X-Ray 02/10/17 0600 Signed Impressions: Service Date/Time: Friday, February 10, 2017 04:48 - CONCLUSION: 1. Stable chest x-ray with moderate size left pleural effusion with associated volume loss and/or airspace consolidation. 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 Trevon Wilson MD Chest X-Ray 02/09/17 0000 Signed Impressions: Service Date/Time: January 08:32 - CONCLUSION: Worsening left effusion and left lung infiltrate. Cardiomegaly. 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 Ok to liberalize SBP goals: 130 is ok 2. Transition to all po 3. Nutritional supplements 4. D/C Modi 5. Likely out of ICU tomorrow - will consult hospitalist when transitioning from ICU to floor Herman Barbour MD FACS vba programmer [facility] - Heart and Vascular at [facility] [phone] Herman Barbour MD Feb 10, 2017 08:42
[2017-02-10] MEDS: FAMOTIDINE 20 MG/2 ML VIAL IV PUSH SCH ×2 (09:00→22:02)
[2017-02-10] MEDS: SODIUM CHLORIDE 0.9% FLUSH 10 ML FLUSH SCH ×2 (09:09→22:03)
[2017-02-10] MEDS: DOCUSATE SODIUM 100 MG CAP PO SCH ×2 (09:09→21:12)
[2017-02-10] MEDS: POTASSIUM CHLORIDE 20 MEQ CONTROLLED RELEASE TAB PO SCH (09:10)
[2017-02-10] MEDS: LISINOPRIL 20 MG TAB PO SCH (09:10)
[2017-02-10] MEDS: amLODIPine BESYLATE 5 MG TAB PO SCH (09:10)
[2017-02-10] MEDS: FUROSEMIDE 20 MG TAB PO SCH ×2 (09:10→21:12)
[2017-02-10] MEDS: SERTRALINE HCL 50 MG TAB PO SCH (09:10)
[2017-02-10] MEDS: cloNIDine HCL 0.3 MG TAB PO SCH ×2 (12:56→21:11)
[2017-02-10] MEDS: HEPARIN SODIUM - SQ 10,000 UNITS/ML VIAL SQ SCH ×2 (13:54→21:11)
[2017-02-10] MEDS ORDERED: METOPROLOL TARTRATE 50 MG TAB ONE (14:13)
[2017-02-10] MEDS: hydrALAZINE HCL 20 MG/ML VIAL IV PUSH PRN (17:00)
[2017-02-10] MEDS: MELATONIN 5 MG TAB PO SCH (21:00)
[2017-02-10] MEDS: PRAVASTATIN SOD 40 MG TAB PO SCH (21:11)
[2017-02-10] MEDS: METOPROLOL TARTRATE 50 MG TAB PO SCH (23:41)
[2017-02-11] VITALS (11 sets, daily range): BP systolic 72–142; BP diastolic 33–82; PULSE 73–92; RESP 14–18; TEMP 98.4–99.8; O2SAT 93–95
[2017-02-11] MEDS: hydrALAZINE HCL 20 MG/ML VIAL IV PUSH PRN (03:42)
[2017-02-11] MEDS: CHLORHEXIDINE GLUCONATE 2 % 1 PACK (2 CLOTHS) TOP SCH (04:00)
[2017-02-11] MEDS: cloNIDine HCL 0.3 MG TAB PO SCH ×3 (05:55→20:45)
[2017-02-11] MEDS: hydrALAZINE HCL 50 MG TAB PO SCH ×2 (05:55→14:00)
[2017-02-11] MEDS: HEPARIN SODIUM - SQ 10,000 UNITS/ML VIAL SQ SCH ×3 (05:55→20:45)
[2017-02-11] MEDS: METOPROLOL TARTRATE 50 MG TAB PO SCH ×2 (06:33→22:26)
--- NOTE | 2017-02-11 07:33 | PD.VS.PN ---
Subjective Subjective/Hospital Course Pt without pain this morning. No appetite but otherwise ok Slightly somnolent Still controlling BP Modi had to be re-inserted for urinary retention Objective Vitals/I&O Date Time Temp Pulse Resp B/P Pulse Ox O2 Delivery O2 Flow Rate FiO2 02/11/17 03:00 81 02/11/17 03:00 95 Nasal Cannula 2.00 02/11/17 03:00 99.0 85 18 142/82 95 02/10/17 23:00 82 02/10/17 23:00 96 Nasal Cannula 2.00 02/10/17 23:00 99.1 80 18 118/63 96 02/10/17 19:00 98.4 77 18 95/54 94 02/10/17 19:00 94 Nasal Cannula 2.00 02/10/17 19:00 76 02/10/17 15:06 93 Nasal Cannula 2.00 02/10/17 15:05 75 02/10/17 15:04 98.7 75 17 112/62 93 02/10/17 11:05 64 02/10/17 11:05 93 Nasal Cannula 2.00 02/10/17 11:03 98.4 64 20 79/42 93 02/10/17 07:40 93 Nasal Cannula 2.00 02/10/17 07:39 67 02/10/17 07:38 98.8 68 16 132/68 93 02/11/17 02/11/17 02/11/17 07:00 15:00 23:00 Intake Total 480 ml Output Total 1150 ml Balance -670 ml Physical Exam No abdominal tenderness YI Imaging Last 48 hours Impressions Chest X-Ray 02/10/17 0600 Signed Impressions: Service Date/Time: Friday, February 10, 2017 04:48 - CONCLUSION: 1. Stable chest x-ray with moderate size left pleural effusion with associated volume loss and/or airspace consolidation. 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 Ok to liberalize SBP goals: 130 is ok 2. Transition to all po 3. Nutritional supplements 4. D/C Modi in 2 days 5. Transition to hospitalist service now that acute dissection stabilized. Ok to transition from ICU on telemetry Herman Barbour MD FACS bus steward [facility] - Heart and Vascular at [facility] [phone] Herman Barbour MD Feb 11, 2017 07:33
[2017-02-11] MEDS: SODIUM CHLORIDE 0.9% FLUSH 10 ML FLUSH SCH ×2 (09:00→22:21)
[2017-02-11] MEDS: DOCUSATE SODIUM 100 MG CAP PO SCH ×2 (10:04→20:46)
[2017-02-11] MEDS: FAMOTIDINE 20 MG/2 ML VIAL IV PUSH SCH (10:04)
[2017-02-11] MEDS: FUROSEMIDE 20 MG TAB PO SCH ×2 (10:04→20:45)
[2017-02-11] MEDS: POTASSIUM CHLORIDE 20 MEQ CONTROLLED RELEASE TAB PO SCH (10:04)
[2017-02-11] MEDS: LISINOPRIL 20 MG TAB PO SCH (10:05)
[2017-02-11] MEDS: amLODIPine BESYLATE 5 MG TAB PO SCH (10:05)
--- NOTE | 2017-02-11 10:43 | HHI.CCPN ---
Subjective Remarks/Hospital Course 76-year-old very pleasant female resented to [facility] with chest pain and abdominal pain that started a few weeks ago however escalated a few days ago that prompted her to be admitted through the ER at an outside institution. She was found to have an acute thoracic type B aortic dissection and was transferred here for however of care. SUBJ: 02/05 remains on labetalol infusion with good blood pressure control. Spiked fever 101.4. Pancultured chest x-ray pending. Conservative medical management and CT angiogram in a.m. 02/06: Overnight intermittently agitated. Required Ativan and Haldol. CXR 02/05 with L consolidation, effusion and enlarged cardiac silhouette. CTA chest abd pelvis ordered. Started empirically on Zosyn and azithromycin. No high fever reported 02/07: Remains on labetalol infusion at 3.5 mg/m. CT angiogram yesterday showed stable stat type B dissection. There was a moderate-sized left pleural effusion without infiltrate. No evidence of pneumonia I will discontinue azithromycin today DC Zosyn in 24 hours if cultures remain negative. Also give Lasix 20 mg 1, additional 200 mg by mouth labetalol and increase to 300 mg every 8 hours 02/08: Remains on 4 mg /min of Labetalol gtt. Will increase Norvasc to 10 mg daily (home dose) and resume home clonidine 0.1mg BID. D/W Dr. Barbour. SBP target remains <110 02/09: On 3mg/min of labetalol, despite resuming clonidine and Lasix (home meds) and increasing Norvasc. Today will increase clonidine to 0.2 mg q8 and change lasix to BID. required 1 mg Ativan for agitation at 9pm yesterday, now oriented 02/10: remains on labetalol drip. otherwise tolerating diet. 02/11: off labetalol drip. BP controlled on oral meds. doing well. OOB. tolerating diet. Objective Vital Signs Date Time Temp Pulse Resp B/P Pulse Ox O2 Delivery O2 Flow Rate FiO2 02/11/17 07:36 94 Nasal Cannula 2.00 02/11/17 07:00 99.8 91 14 103/52 Intake and Output 02/10/17 02/10/17 02/11/17 08:00 16:00 00:00 Intake Total 727 ml 486 ml Output Total 1950 ml 1800 ml Balance -1223 ml -1314 ml Result Diagram: 02/10/1731402/10/17314 Objective Remarks GENERAL: elderly female, lying in bed. SKIN: Warm and dry. HEAD: Normocephalic. EYES: No scleral icterus. No injection or drainage. NECK: trachea midline. No JVD CARDIOVASCULAR: normal rate, regular rhythm. RESPIRATORY: Breath sounds diminished at bases, more so on L side. No accessory muscle use. GASTROINTESTINAL: Abdomen soft, mild diffuse tenderness, nondistended. MUSCULOSKELETAL: No cyanosis, or edema. BACK: Nontender without obvious deformity. EXTREMITIES: No clubbing cyanosis or edema, peripheral pulses positive bilaterally NEURO: Alert awake oriented, following commands. No focal deficits. A/P Assessment and Plan Assessment: 76yF acute type B dissection. clinically improving. off vasoactive infusions. stable for transfer to floor. A/P Neuro: Metabolic encephalopathy Underlying mild cognitive impairment -Morphine and Tylenol for pain control -Haldol as needed for agitation. -Patient may have mild underlying cognitive deficits -melatonin for improved sleep/wake cycle. CVS: Type B aortic dissection Hypertension - Vascular surgery Dr. Barbour - Liberalize SBP goals to < 140, given that patient will likely not be able to accomplish < 110 at home. - Hypetension regimen: metoprolol 50mg po q8h amlodipine 10mg po qAM lasix 20mg po bid clonidine to 0.3mg po q8h lisinopril 20mg po daily hydralazine 50mg po q8h - prn hydralazine and labetalol - At home takes metoprolol, clonidine, Norvasc, and Lasix. Increase Lasix to 20 mg BID with KCL 20 daily - CTA chest abd pelvis-stable [place] type B dissection. Moderate left pleural effusion probably sympathetic - 2d Echo 02/08. EF 45%, Moderate MR. Cardiology consult once more stable RESP: Moderate left effusion -DuoNeb q6 PRN. Aggressive pulmonary toilet -EzPAP, Acapella, IS -Empiric Zosyn -DCd GI: -Cardiac diet, Pepcid for GI prophylaxis : Urinary Retention -Monitor renal function closely -christian replaced overnight for urinary retention. start flomax today. give 48h of flomax and a second trial of voiding with christian removal. ID: Fever -resolved LLL effusion did not appear infected -Blood cultures urine -negative to date -s/p empiric zosyn Endo Diabetes mellitus Hypokalemia - Insulin sliding scale - Electrolyte replacement per ICU protocol DVT GI prophylaxis - SQH - Teds SCDs and Pepcid Dispo: transfer to the floor with hospitalist following. Critical care medicine will sign off. please re-consult as needed. Alpesh Cornelius MD Feb 11, 2017 10:43
[2017-02-11] MEDS: TAMSULOSIN HCL 0.4 MG CAP PO SCH (11:35)
[2017-02-11] MEDS: SERTRALINE HCL 50 MG TAB PO SCH (11:35)
[2017-02-11] MEDS ORDERED: SODIUM CHLOR 0.9% 250 ML INJ 250 ML IV ONE (15:30)
[2017-02-11] MEDS: MELATONIN 5 MG TAB PO SCH (20:45)
[2017-02-11] MEDS: PRAVASTATIN SOD 40 MG TAB PO SCH (20:46)
[2017-02-11] MEDS: FAMOTIDINE 20 MG TAB PO SCH (20:46)
[2017-02-11] MEDS: HALOPERIDOL LACTATE 5 MG/ML AMP IV PUSH PRN (22:21)
[2017-02-12] VITALS (26 sets, daily range): BP systolic 72–156; BP diastolic 35–95; PULSE 74–102; RESP 16–18; TEMP 98.2–98.5; O2SAT 86–99
[2017-02-12] MEDS: HALOPERIDOL LACTATE 5 MG/ML AMP IV PUSH PRN ×2 (01:39→22:22)
[2017-02-12] MEDS: CHLORHEXIDINE GLUCONATE 2 % 1 PACK (2 CLOTHS) TOP SCH (04:00)
[2017-02-12] MEDS: HEPARIN SODIUM - SQ 10,000 UNITS/ML VIAL SQ SCH ×3 (05:32→20:53)
[2017-02-12] MEDS: cloNIDine HCL 0.3 MG TAB PO SCH ×3 (05:32→21:00)
[2017-02-12] MEDS: METOPROLOL TARTRATE 50 MG TAB PO SCH ×3 (05:32→23:00)
[2017-02-12] MEDS: FAMOTIDINE 20 MG TAB PO SCH ×2 (08:54→20:53)
[2017-02-12] MEDS: POTASSIUM CHLORIDE 20 MEQ CONTROLLED RELEASE TAB PO SCH (08:54)
[2017-02-12] MEDS: amLODIPine BESYLATE 5 MG TAB PO SCH (08:54)
[2017-02-12] MEDS: TAMSULOSIN HCL 0.4 MG CAP PO SCH (08:54)
[2017-02-12] MEDS: FUROSEMIDE 20 MG TAB PO SCH ×2 (08:54→20:53)
[2017-02-12] MEDS: SERTRALINE HCL 50 MG TAB PO SCH (08:54)
[2017-02-12] MEDS: DOCUSATE SODIUM 100 MG CAP PO SCH ×2 (08:54→21:00)
[2017-02-12] MEDS: LISINOPRIL 20 MG TAB PO SCH (08:55)
[2017-02-12] MEDS: SODIUM CHLORIDE 0.9% FLUSH 10 ML FLUSH SCH ×2 (08:55→20:54)
--- NOTE | 2017-02-12 09:48 | PD.VS.PN ---
Subjective Subjective/Hospital Course Pt without pain this morning. No appetite but otherwise ok BP ok with po meds Slightly confused this morning but no focal deficits Objective Vitals/I&O Date Time Temp Pulse Resp B/P Pulse Ox O2 Delivery O2 Flow Rate FiO2 02/12/17 08:45 93 Nasal Cannula 2.00 02/12/17 08:45 98.4 86 18 156/95 86 02/12/17 08:36 98 Nasal Cannula 1.50 02/12/17 07:01 75 02/12/17 06:00 81 02/12/17 05:00 92 02/12/17 04:30 94 Nasal Cannula 2.00 02/12/17 04:00 98 02/12/17 04:00 98.5 82 16 106/77 95 02/12/17 03:00 84 02/12/17 02:00 96 02/12/17 01:00 92 02/12/17 00:00 85 02/12/17 00:00 98.4 80 16 143/80 95 02/11/17 23:00 80 02/11/17 22:00 92 02/11/17 21:25 93 Nasal Cannula 3.00 02/11/17 21:00 80 02/11/17 20:00 98.4 81 16 107/60 94 02/11/17 20:00 76 02/11/17 19:00 80 02/11/17 15:46 94 Nasal Cannula 3.00 02/11/17 15:45 98.5 73 16 72/33 94 02/11/17 11:30 89 02/11/17 11:30 99.4 89 16 92/60 95 02/11/17 11:30 95 Nasal Cannula 3.00 Physical Exam Palpable UE and femoral pulses No abdominal tenderness Assessment and Plan Assessment: (1) 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 Ok to liberalize SBP goals: 130-140 is ok 2. Transition to all po 3. Nutritional supplements 4. D/C Modi in a.m. 5. Transition to hospitalist service now that acute dissection stabilized. 6. Will arrange f/u CTA as outpatient 7. Physical therapy Herman Barbour MD FACS legal officer [facility] - Heart and Vascular at [facility] [phone] Herman Barbour MD Feb 12, 2017 09:48
[2017-02-12] MEDS ORDERED: METOPROLOL TARTRATE 5 MG/5 ML VIAL ONE (11:46)
--- NOTE | 2017-02-12 12:40 | HHI.PR ---
Subjective Remarks around 11 am- patient while having a BM - went into bradycardia - HR in low 40s - with presyncopal sensation HALicat called now awake and alert, - patient with baseline dementia Objective Vitals Vital Signs Date Time Temp Pulse Resp B/P Pulse Ox O2 Delivery O2 Flow Rate FiO2 02/12/17 12:03 99 Nasal Cannula 5.00 02/12/17 08:45 93 Nasal Cannula 2.00 02/12/17 08:45 98.4 86 18 156/95 86 02/12/17 08:36 98 Nasal Cannula 1.50 02/12/17 07:01 75 02/12/17 06:00 81 02/12/17 05:00 92 02/12/17 04:30 94 Nasal Cannula 2.00 02/12/17 04:00 98 02/12/17 04:00 98.5 82 16 106/77 95 02/12/17 03:00 84 02/12/17 02:00 96 02/12/17 01:00 92 02/12/17 00:00 85 02/12/17 00:00 98.4 80 16 143/80 95 02/11/17 23:00 80 02/11/17 22:00 92 02/11/17 21:25 93 Nasal Cannula 3.00 02/11/17 21:00 80 02/11/17 20:00 98.4 81 16 107/60 94 02/11/17 20:00 76 02/11/17 19:00 80 02/11/17 15:46 94 Nasal Cannula 3.00 02/11/17 15:45 98.5 73 16 72/33 94 I/O 02/11/17 02/11/17 02/11/17 02/12/17 02/12/17 02/12/17 07:00 15:00 23:00 07:00 15:00 23:00 Intake Total 480 ml 890 ml 240 ml Output Total 1150 ml 1155 ml 2300 ml Balance -670 ml -265 ml -2060 ml Intake Oral 480 ml 640 ml 240 ml IV Total 0 ml 250 ml Output Urine Total 1150 ml 1155 ml 2300 ml Bladder Scan Volume Amount 641 ml # Bowel Movements 0 2 3 Result Diagram: 02/10/1731402/10/17314 Imaging Last Impressions Chest X-Ray 3/31/17 0600 Signed Impressions: Service Date/Time: Friday, February 10, 2017 04:48 - CONCLUSION: 1. Stable chest x-ray with moderate size left pleural effusion with associated volume loss and/or airspace consolidation. 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 Trevon Wilson MD Aorta CTA 02/06/17 0000 Signed Impressions: Service Date/Time: Monday, February 06, 2017 10:25 - CONCLUSION: 1. [place] type B aortic dissection beginning approximately 4 cm distal to the left subclavian artery origin and terminating just cephalad to the renal artery origins. The only vessel arising from the false lumen is the celiac. 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 There is some fenestration to the dissection flap as there is equal opacification of the true and false lumens. Arch vessels are not involved. 2. Moderate size left pleural effusion. 3. Cardiomegaly. 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 Barbour - Cardiology consulted - CTA chest abd pelvis-stable Mario type B dissection. Moderate left pleural effusion probably sympathetic - Telemetry - rate 80- 90s- SR - 2d Echo 02/08. EF 45%, Moderate MR. Cardiology consult once more stable - Liberalize SBP goals to < 140, given that patient will likely not be able to accomplish < 110 at home. - Hypertension regimen: metoprolol 50mg po q8h amlodipine 10mg po qAM lasix 20mg po bid clonidine to 0.3mg po q8h lisinopril 20mg po daily hydralazine 50mg po q8h - prn hydralazine and labetalol - continue current regimen and adjust - - arrange f/u CTA as outpatient- per Vascular Service Metabolic encephalopathy Underlying mild cognitive impairment -Morphine and Tylenol for pain control -Haldol as needed for agitation. -Patient may have mild underlying cognitive deficits -melatonin for improved sleep/wake cycle. RESP: Moderate left effusion -DuoNeb q6 PRN. Aggressive pulmonary toilet -EzPAP, Acapella, IS -Empiric Zosyn -DCd GI: -Cardiac diet, Pepcid for GI prophylaxis : Urinary Retention -Monitor renal function closely . trial of flomax -christian replaced overnight for urinary retention. start flomax today. give 48h of flomax - 02/11 and a second trial of voiding with christian removal. ID: Fever -resolved LLL effusion did not appear infected -Blood cultures urine -negative to date -s/p empiric zosyn Endo Diabetes mellitus Hypokalemia - Insulin sliding scale - monitor- BMP today DVT GI prophylaxis - SQH - Teds SCDs and Pepcid Paige Molina MD Feb 12, 2017 12:40 - Insulin sliding scale - Electrolyte replacement per ICU protocol DVT GI prophylaxis - SQH - Teds SCDs and Pepcid Dispo: transfer to the floor with hospitalist following. Critical care medicine will sign off. please re-consult as needed. Alpesh Cornelius MD Feb 11, 2017 10:43 Paige Molina MD Feb 12, 2017 12:40
[2017-02-12 18:15] LABS: BICARBONATE 29.1 MEQ/L (21.0-32.0); POTASSIUM 3.7 MEQ/L (3.5-5.1)
[2017-02-12] MEDS: MELATONIN 5 MG TAB PO SCH (20:53)
[2017-02-12] MEDS: PRAVASTATIN SOD 40 MG TAB PO SCH (20:54)
[2017-02-13] VITALS (23 sets, daily range): BP systolic 115–161; BP diastolic 52–97; PULSE 67–110; RESP 16–18; TEMP 97.8–99.2; O2SAT 95–99
[2017-02-13] MEDS: CHLORHEXIDINE GLUCONATE 2 % 1 PACK (2 CLOTHS) TOP SCH (04:00)
[2017-02-13] MEDS: cloNIDine HCL 0.3 MG TAB PO SCH ×3 (04:08→20:56)
[2017-02-13] MEDS: HEPARIN SODIUM - SQ 10,000 UNITS/ML VIAL SQ SCH ×3 (04:08→20:57)
[2017-02-13] MEDS: MORPHINE SULFATE 4 MG/ML INJ IV PRN ×2 (04:09→20:58)
[2017-02-13] MEDS: METOPROLOL TARTRATE 50 MG TAB PO SCH ×3 (05:24→23:00)
--- NOTE | 2017-02-13 05:55 | PD.CARD.PN ---
Subjective Subjective Remarks No chest pain overnight. Had a vagal episode when up to [facility], but feels ok now. C/O burning in bottoms of feet. Objective Medications Current Medications Medications (Trade) Dose Ordered Sig/Simeon Route Start Time Stop Time Status Last Admin (NS Flush) 2 ml UNSCH PRN .XX 02/04/17 20:45 02/04/17 20:30 (NS Flush) 2 ml BID .XX 02/04/17 21:00 02/12/17 20:54 (Tylenol) 650 mg Q6H PRN PO 02/04/17 20:45 (Morphine Inj) 2 mg Q2H PRN IV 02/04/17 20:45 02/13/17 04:09 (Zofran Inj) 4 mg Q6H PRN IV 02/04/17 20:45 (Reglan Inj) 10 mg Q6H PRN IV 02/04/17 20:45 (Colace) 100 mg BID PO 02/04/17 21:00 02/12/17 08:54 Miscellaneous Information 1 Q361D XX 02/04/17 20:45 02/04/17 20:45 (Chlorhexidine 2% Cloth) Taper DAILY@04 TOP 02/05/17 04:00 02/01/18 03:59 02/10/17 04:00 Chlorhexidine Gluconate 3 pack 3 pack UNSCH PRN TOP 02/04/17 20:45 Potassium Chloride 100 ml @ 50 mls/hr Q2H PRN IV 02/04/17 22:45 Potassium Chloride 100 ml @ 50 mls/hr Q2H PRN IV 02/04/17 22:45 Potassium Chloride 100 ml @ 25 mls/hr UNSCH PRN IV 02/04/17 22:45 Potassium Chloride 100 ml @ 50 mls/hr Q2H PRN IV 02/04/17 22:45 02/08/17 11:45 (Magnesium Sulfate Inj/NS Inj) 100 ml @ 50 mls/hr UNSCH PRN IV 02/04/17 22:45 Magnesium Oxide 800 mg 800 mg UNSCH PRN PO 02/04/17 22:45 (Magnesium Sulfate Inj/NS Inj) 100 ml @ 50 mls/hr UNSCH PRN IV 02/04/17 22:45 Potassium Phosphate 2000 mg 2,000 mg Q4H PRN PO 02/04/17 22:45 (Sodium Phosphate Inj/NS 250 ml Inj) 250 ml @ 42 mls/hr UNSCH PRN IV 02/04/17 22:45 02/05/17 06:52 Potassium Phosphate 2000 mg 2,000 mg UNSCH PRN PO/TUBE 02/04/17 22:45 (Potassium Phosphate Inj/NS 250 ml Inj) 260 ml @ 42 mls/hr UNSCH PRN IV 02/04/17 22:45 (Trandate Inj) 20 mg Q4H PRN IV PUSH 02/05/17 11:00 (Pill Splitter) 1 ea UNSCH PRN OTHER 02/05/17 10:45 (Haldol Inj) 2 mg Q4H PRN IV PUSH 02/06/17 09:00 02/12/17 22:22 (Norvasc) 10 mg DAILY PO 02/08/17 09:00 02/12/17 08:54 (KCl) 20 meq DAILY PO 02/08/17 10:00 02/12/17 08:54 (Lasix) 20 mg Q12H PO 02/09/17 10:00 02/12/17 20:53 (Catapres) 0.3 mg Q8H PO 02/10/17 13:00 02/13/17 04:08 (Prinivil) 20 mg DAILY PO 02/10/17 09:00 02/12/17 08:55 (Apresoline Inj) 10 mg Q30M PRN IV PUSH 02/10/17 08:00 02/11/17 03:42 (Zoloft) 50 mg DAILY PO 02/10/17 09:00 02/12/17 08:54 (Pravachol) 40 mg HS PO 02/10/17 21:00 02/12/17 20:54 (Melatonin) 5 mg HS PO 02/10/17 21:00 02/12/17 20:53 (Heparin Inj) 5,000 units Q8HR SQ 02/10/17 14:00 02/13/17 04:08 (Pepcid) 20 mg BID PO 02/11/17 21:00 02/12/17 20:53 (Flomax) 0.4 mg DAILY PO 02/11/17 10:45 02/12/17 08:54 (Lopressor) 25 mg Q8H PO 02/11/17 23:00 02/13/17 05:24 Vital Signs / I&O Vital Signs Date Time Temp Pulse Resp B/P Pulse Ox O2 Delivery O2 Flow Rate FiO2 02/13/17 05:30 141/87 02/13/17 05:00 150/92 02/13/17 05:00 108 02/13/17 04:15 97 Nasal Cannula 2.00 02/13/17 04:00 110 02/13/17 04:00 99.0 110 18 155/97 98 02/13/17 03:00 97 02/13/17 02:00 90 02/13/17 01:00 92 02/13/17 00:10 98 Nasal Cannula 2.00 02/13/17 00:00 98.4 92 18 129/62 98 02/13/17 00:00 86 02/12/17 23:00 92 02/12/17 22:00 102 02/12/17 21:00 90 02/12/17 20:30 98 Nasal Cannula 2.00 02/12/17 20:00 97 02/12/17 20:00 98.2 96 18 102/58 98 02/12/17 19:00 96 02/12/17 16:01 136/86 116/67 94/75 02/12/17 15:01 98.4 98 18 125/77 97 02/12/17 15:01 91 02/12/17 15:01 97 Nasal Cannula 2.00 02/12/17 14:00 89 02/12/17 13:00 84 02/12/17 12:03 99 Nasal Cannula 5.00 02/12/17 11:40 97 Nasal Cannula 2.00 02/12/17 11:40 98.2 74 18 72/35 97 02/12/17 11:00 74 02/12/17 10:00 90 02/12/17 09:00 78 02/12/17 08:45 93 Nasal Cannula 2.00 02/12/17 08:45 98.4 86 18 156/95 86 02/12/17 08:36 98 Nasal Cannula 1.50 02/12/17 08:00 74 02/12/17 07:01 75 02/12/17 06:00 81 I/O 02/12/17 02/12/17 02/12/17 02/13/17 02/13/17 02/13/17 07:00 15:00 23:00 07:00 15:00 23:00 Intake Total 240 ml 480 ml 360 ml Output Total 2300 ml 700 ml 650 ml Balance -2060 ml -220 ml -290 ml Intake Oral 240 ml 480 ml 360 ml Output Urine Total 2300 ml 700 ml 650 ml # Bowel Movements 3 2 1 Physical Exam GENERAL: Well-nourished, well-developed patient. SKIN: Warm and dry. HEAD: Normocephalic. EYES: No scleral icterus. No injection or drainage. NECK: Supple, trachea midline. No JVD or lymphadenopathy. CARDIOVASCULAR: Regular rate and rhythm without murmurs, gallops, or rubs. RESPIRATORY: Breath sounds diminished left, faint crackles. No accessory muscle use. GASTROINTESTINAL: Abdomen soft, non-tender, nondistended. EXTREMITIES: No cyanosis, or edema. NEUROLOGICAL: Awake, alert, and oriented x 3. Non-focal. Laboratory Laboratory Tests Test 02/12/17 17:20 Sodium Level 140 MEQ/L Potassium Level 3.7 MEQ/L Chloride Level 104 MEQ/L Carbon Dioxide Level 29.1 MEQ/L Anion Gap 7 MEQ/L Blood Urea Nitrogen 13 MG/DL Creatinine 0.70 MG/DL Estimat Glomerular Filtration 99 ML/MIN Rate Random Glucose 104 MG/DL Calcium Level 8.9 MG/DL Imaging Last Impressions Chest X-Ray 02/10/17 0600 Signed Impressions: Service Date/Time: Friday, February 10, 2017 04:48 - CONCLUSION: 1. Stable chest x-ray with moderate size left pleural effusion with associated volume loss and/or airspace consolidation. 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 Trevon Wilson MD Aorta CTA 02/06/17 0000 Signed Impressions: Service Date/Time: Monday, February 06, 2017 10:25 - CONCLUSION: 1. [place] type B aortic dissection beginning approximately 4 cm distal to the left subclavian artery origin and terminating just cephalad to the renal artery origins. The only vessel arising from the false lumen is the celiac. 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 There is some fenestration to the dissection flap as there is equal opacification of the true and false lumens. Arch vessels are not involved. 2. Moderate size left pleural effusion. 3. Cardiomegaly. 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 Barbour managing. (2) Hypertension Assessment and Plan: BP somewhat labile, developed vagal episode overnight when up on [facility]. Currently taking lisinopril 20 mg qd, norvasc 10 mg qd, metoprolol 25 mg q8h, catapres 0.3 mg q8h, tamsulosin 0.4 mg qd with PRN overrides with trandate and hydralazine for elevations with parameters. Continue current management at this time. (3) Pleural effusion on left Assessment and Plan: Medical management by [facility]. Stable on minimal O2, no SOB. Assessment and Plan A&P D/W pt, family, RN, Dr. Smart. Problem Qualifiers (1) Hypertension: Qualified Code: I10 - Essential hypertension Ashley Irving Feb 13, 2017 05:55
--- NOTE | 2017-02-13 08:20 | MB ---
cc: IVANIA HANKINS HANSCY M.D. FEEZOR,CARLOS Trevino MD DATE OF CONSULTATION: 02/12/2017 REASON FOR CONSULTATION: Hypotension, severe bradycardia, aortic dissection. I was doing rounds when Priyanka was called ___ [phone]. On evaluation I did find Mrs. De Paz in a junctional rhythm, unresponsive, systolic blood pressure was around 68. Subsequently, epinephrine was given. Heart rate increased around 150, systolic around 218. I did administer around 3 mg of metoprolol. Heart rate came down and the systolic blood pressure was in the 160s, subsequently stabilized. She was fully responsive, alert, fully oriented. While I was managing the patient Dr. Hankins called Dr. Barbour. This is a vascular surgeon who was following Mrs. De Paz. Mrs. De Paz was stabilized and subsequently there is a cardiology consult that was requested. The chart was reviewed. The patient was evaluated. I did also talk earlier with the daughters. ALLERGIES LIDOCAINE. SOCIAL HISTORY Negative for smoking and drinking. MEDICATIONS Currently: 1. She is on magnesium. 2. Potassium. 3. Acetaminophen. 4. Norvasc 10 mg a day. 5. Clonidine 0.3 mg q.8 hours. 6. Pepcid 20 mg twice a day. 7. Lasix 20 mg q.12 hours. 8. Haldol 2 mg IV p.r.n. q.4 hours for agitation. 9. Heparin subcu 5000 units q.8 hours. 10. Hydralazine p.r.n. 11. Labetalol IV p.r.n. 12. Lisinopril 20 mg a day. 13. Magnesium. 14. Melatonin. 15. Reglan. 16. Metoprolol 50 mg q.8 hours. 17. Morphine p.r.n. 18. Zoloft 50 mg a day. 19. Pravachol 40 mg at bedtime. 20. Flomax 0.4 mg a day. REVIEW OF SYSTEMS Currently the patient refers feeling better. No chest pain, no abdominal pain. No fever. PHYSICAL EXAMINATION GENERAL: Alert, oriented. VITAL SIGNS: Her blood pressure is 118/71, pulse is 98, respiratory rate 18. LUNGS: Ventilated. CARDIOVASCULAR: S1-S2, regular. ABDOMEN: Soft. No mass. EXTREMITIES: No edema. ELECTROCARDIOGRAM Sinus rhythm. No significant acute ST and T-wave changes. LABORATORY DATA Hemoglobin 10.4, white blood cell 7.2, potassium 3.4, creatinine 0.66, INR 1.1, APTT the last one was on 02/04, 29.4. ASSESSMENT AND RECOMMENDATIONS Mrs. De Paz is doing better right now. Fully recuperated from the event. There is no abdominal pain. No chest pain. But chest x-ray indicated a left pleural effusion. I was talking back and forth with Dr. Hankins. Apparently he was talking also with Dr. Barbour. There may be a need for a new CT scan. There was some concern about the dye load over the kidney. Also, apparently the decision to manage only conservatively Mrs. De Paz. I am not sure of the reason of the junctional rhythm as well as the severe bradycardia. I am not sure that was a vagal reflex. That needs to be further investigated. I understand the issue about the dye. The patient's creatinine currently is 0.66. The patient may need a new CT scan and further evaluation by vascular surgery. No further intervention is needed by cardiology. I will follow Mrs. De Paz tomorrow morning and then if she is stable she can be followed by vascular surgery. Her condition is of care. Sabrina Smart MD HS/BRENDA /2:44 PM /7:58 AM
[2017-02-13] MEDS: SERTRALINE HCL 50 MG TAB PO SCH (08:55)
[2017-02-13] MEDS: FAMOTIDINE 20 MG TAB PO SCH ×2 (08:55→20:57)
[2017-02-13] MEDS: POTASSIUM CHLORIDE 20 MEQ CONTROLLED RELEASE TAB PO SCH (08:55)
[2017-02-13] MEDS: SODIUM CHLORIDE 0.9% FLUSH 10 ML FLUSH SCH ×2 (08:55→20:58)
[2017-02-13] MEDS: DOCUSATE SODIUM 100 MG CAP PO SCH ×2 (08:56→20:57)
[2017-02-13] MEDS: LISINOPRIL 20 MG TAB PO SCH ×2 (09:00→17:24)
[2017-02-13] MEDS: amLODIPine BESYLATE 5 MG TAB PO SCH ×2 (09:00→12:22)
[2017-02-13] MEDS: TAMSULOSIN HCL 0.4 MG CAP PO SCH (09:00)
[2017-02-13] MEDS: FUROSEMIDE 20 MG TAB PO SCH ×2 (10:00→20:57)
--- NOTE | 2017-02-13 11:31 | PD.VS.PN ---
Subjective Subjective/Hospital Course Pt laying in bed this am without complaints. Pt denies any Back or Abdominal pain. Pt appears more alert this am then previous assessment. FM at the Objective Vitals/I&O Date Time Temp Pulse Resp B/P Pulse Ox O2 Delivery O2 Flow Rate FiO2 02/13/17 10:01 76 02/13/17 09:00 86 02/13/17 08:30 99.2 85 16 131/83 97 02/13/17 08:30 97 Nasal Cannula 2.00 02/13/17 08:00 78 02/13/17 07:00 70 02/13/17 06:00 115/68 02/13/17 06:00 78 02/13/17 05:30 141/87 02/13/17 05:00 150/92 02/13/17 05:00 108 02/13/17 04:15 97 Nasal Cannula 2.00 02/13/17 04:00 110 02/13/17 04:00 99.0 110 18 155/97 98 02/13/17 03:00 97 02/13/17 02:00 90 02/13/17 01:00 92 02/13/17 00:10 98 Nasal Cannula 2.00 02/13/17 00:00 98.4 92 18 129/62 98 02/13/17 00:00 86 02/12/17 23:00 92 02/12/17 22:00 102 02/12/17 21:55 97 Nasal Cannula 2.00 02/12/17 21:00 90 02/12/17 20:30 98 Nasal Cannula 2.00 02/12/17 20:00 97 02/12/17 20:00 98.2 96 18 102/58 98 02/12/17 19:00 96 02/12/17 16:01 136/86 116/67 94/75 02/12/17 15:01 98.4 98 18 125/77 97 02/12/17 15:01 91 02/12/17 15:01 97 Nasal Cannula 2.00 02/12/17 14:00 89 02/12/17 13:00 84 02/12/17 12:03 99 Nasal Cannula 5.00 02/12/17 11:40 97 Nasal Cannula 2.00 02/12/17 11:40 98.2 74 18 72/35 97 Physical Exam GENERAL: Alert in nad, pleasant 75/F SKIN: Warm and dry. CARDIOVASCULAR: +S1,S2, RRR RESPIRATORY: Breath sounds equal and clear bilaterally. No accessory muscle use. GASTROINTESTINAL: Abdomen soft, non-tender, nondistended. MUSCULOSKELETAL: No cyanosis, or edema. 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
--- NOTE | 2017-02-13 17:04 | HHI.PR ---
Subjective Remarks no complains telemetry- sinus with PVCs Objective Vitals Vital Signs Date Time Temp Pulse Resp B/P Pulse Ox O2 Delivery O2 Flow Rate FiO2 02/13/17 15:15 97 Nasal Cannula 2.00 02/13/17 15:15 91 02/13/17 15:15 98.9 85 18 115/52 97 02/13/17 14:00 110 02/13/17 13:00 92 02/13/17 12:01 80 02/13/17 11:45 97.8 89 16 152/91 95 02/13/17 11:45 97 Nasal Cannula 2.00 02/13/17 11:00 67 02/13/17 10:01 76 02/13/17 09:00 86 02/13/17 08:30 99.2 85 16 131/83 97 02/13/17 08:30 97 Nasal Cannula 2.00 02/13/17 08:00 78 02/13/17 07:00 70 02/13/17 06:00 115/68 02/13/17 06:00 78 02/13/17 05:30 141/87 02/13/17 05:00 150/92 02/13/17 05:00 108 02/13/17 04:15 97 Nasal Cannula 2.00 02/13/17 04:00 110 02/13/17 04:00 99.0 110 18 155/97 98 02/13/17 03:00 97 02/13/17 02:00 90 02/13/17 01:00 92 02/13/17 00:10 98 Nasal Cannula 2.00 02/13/17 00:00 98.4 92 18 129/62 98 02/13/17 00:00 86 02/12/17 23:00 92 02/12/17 22:00 102 02/12/17 21:55 97 Nasal Cannula 2.00 02/12/17 21:00 90 02/12/17 20:30 98 Nasal Cannula 2.00 02/12/17 20:00 97 02/12/17 20:00 98.2 96 18 102/58 98 02/12/17 19:00 96 I/O 02/12/17 02/12/17 02/12/17 02/13/17 02/13/17 02/13/17 07:00 15:00 23:00 07:00 15:00 23:00 Intake Total 240 ml 480 ml 360 ml Output Total 2300 ml 700 ml 650 ml Balance -2060 ml -220 ml -290 ml Intake Oral 240 ml 480 ml 360 ml Output Urine Total 2300 ml 700 ml 650 ml # Bowel Movements 3 2 1 Result Diagram: 02/10/17 0315 02/12/17 1720 Imaging Last Impressions Chest X-Ray 02/10/17 0600 Signed Impressions: Service Date/Time: Friday, February 10, 2017 04:48 - CONCLUSION: 1. Stable chest x-ray with moderate size left pleural effusion with associated volume loss and/or airspace consolidation. 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 Trevon Wilson MD Aorta CTA 02/06/17 0000 Signed Impressions: Service Date/Time: Monday, February 06, 2017 10:25 - CONCLUSION: 1. [place] type B aortic dissection beginning approximately 4 cm distal to the left subclavian artery origin and terminating just cephalad to the renal artery origins. The only vessel arising from the false lumen is the celiac. 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 There is some fenestration to the dissection flap as there is equal opacification of the true and false lumens. Arch vessels are not involved. 2. Moderate size left pleural effusion. 3. Cardiomegaly. 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 Barbour - Cardiology consulted - CTA chest abd pelvis-stable [place] type B dissection. Moderate left pleural effusion probably sympathetic - Telemetry - rate 80- 90s- SR - 2d Echo 02/08. EF 45%, Moderate MR. Cardiology consult once more stable - Liberalize SBP goals to < 140, given that patient will likely not be able to accomplish < 110 at home. - Hypertension regimen: metoprolol 25 mg po q8 amlodipine 10mg po qAM lasix 20mg po bid clonidine to 0.3mg po q8h lisinopril 20mg po daily - prn hydralazine and labetalol - continue current regimen and adjust - - arrange f/u CTA as outpatient- per Vascular Service Metabolic encephalopathy Underlying mild cognitive impairment -Morphine and Tylenol for pain control -Haldol as needed for agitation. -Patient may have mild underlying cognitive deficits -melatonin for improved sleep/wake cycle. RESP: Moderate left effusion -DuoNeb q6 PRN. Aggressive pulmonary toilet -EzPAP, Acapella, IS -Empiric Zosyn -DCd GI: -Cardiac diet, Pepcid for GI prophylaxis : Urinary Retention -Monitor renal function closely . trial of flomax -christian replaced overnight for urinary retention. start flomax today. give 48h of flomax - 02/11 and a second trial of voiding with christian removal. removed today 02/13 ID: Fever -resolved LLL effusion did not appear infected -Blood cultures urine -negative to date -s/p empiric zosyn Endo Diabetes mellitus Hypokalemia - Insulin sliding scale - monitor- BMP today DVT GI prophylaxis - SQH - Teds SCDs and Pepcid Paige Molina MD Feb 13, 2017 17:04 Paige Molina MD Feb 13, 2017 17:04
[2017-02-13] MEDS: ACETAMINOPHEN 325 MG TAB PO PRN (17:15)
[2017-02-13] MEDS: PRAVASTATIN SOD 40 MG TAB PO SCH (20:56)
[2017-02-13] MEDS: MELATONIN 5 MG TAB PO SCH (20:58)
[2017-02-14] VITALS (25 sets, daily range): BP systolic 81–141; BP diastolic 45–86; PULSE 69–94; RESP 16–20; TEMP 97.8–99.3; O2SAT 92–99
[2017-02-14] MEDS: CHLORHEXIDINE GLUCONATE 2 % 1 PACK (2 CLOTHS) TOP SCH (04:00)
[2017-02-14] MEDS: cloNIDine HCL 0.3 MG TAB PO SCH (05:29)
[2017-02-14] MEDS: HEPARIN SODIUM - SQ 10,000 UNITS/ML VIAL SQ SCH ×3 (05:29→21:34)
[2017-02-14] MEDS: METOPROLOL TARTRATE 50 MG TAB PO SCH (05:29)
[2017-02-14] MEDS: FAMOTIDINE 20 MG TAB PO SCH ×2 (08:35→21:35)
[2017-02-14] MEDS: POTASSIUM CHLORIDE 20 MEQ CONTROLLED RELEASE TAB PO SCH (08:35)
[2017-02-14] MEDS: DOCUSATE SODIUM 100 MG CAP PO SCH ×2 (08:36→21:35)
[2017-02-14] MEDS: TAMSULOSIN HCL 0.4 MG CAP PO SCH (08:36)
[2017-02-14] MEDS: LISINOPRIL 20 MG TAB PO SCH (08:36)
[2017-02-14] MEDS: amLODIPine BESYLATE 5 MG TAB PO SCH (08:37)
[2017-02-14] MEDS: ACETAMINOPHEN 325 MG TAB PO PRN (08:37)
[2017-02-14] MEDS: SERTRALINE HCL 50 MG TAB PO SCH (08:37)
[2017-02-14] MEDS: FUROSEMIDE 20 MG TAB PO SCH ×2 (08:38→21:35)
[2017-02-14] MEDS: SODIUM CHLORIDE 0.9% FLUSH 10 ML FLUSH SCH ×2 (08:39→21:34)
--- NOTE | 2017-02-14 11:49 | PD.VS.PN ---
Subjective Subjective/Hospital Course Pt resting comfortably in chair smiling with FM at the BS Pt denies any Back or Abdominal pain and reported she has been feeling great. Objective Vitals/I&O Date Time Temp Pulse Resp B/P Pulse Ox O2 Delivery O2 Flow Rate FiO2 02/14/17 10:00 74 02/14/17 10:00 98/53 02/14/17 09:00 111/65 02/14/17 09:00 74 02/14/17 08:30 123/73 02/14/17 08:00 84 02/14/17 08:00 98 Nasal Cannula 2.00 Humidified 02/14/17 07:30 99.3 81 16 136/83 98 02/14/17 07:00 69 02/14/17 07:00 99.3 78 17 136/83 98 02/14/17 03:00 73 02/14/17 03:00 99 Nasal Cannula 2.00 02/14/17 03:00 98.4 73 18 135/79 99 02/13/17 23:00 98.5 90 18 124/71 99 02/13/17 23:00 79 02/13/17 23:00 98 Nasal Cannula 2.00 02/13/17 19:30 147/83 02/13/17 19:21 95 21 02/13/17 19:00 99 Nasal Cannula 2.00 02/13/17 19:00 98.5 90 18 161/94 99 Automatic Cuff 02/13/17 19:00 90 02/13/17 15:15 97 Nasal Cannula 2.00 02/13/17 15:15 91 02/13/17 15:15 98.9 85 18 115/52 97 02/13/17 14:00 110 02/13/17 13:00 92 02/13/17 12:01 80 02/13/17 11:45 97.8 89 16 152/91 95 02/13/17 11:45 97 Nasal Cannula 2.00 02/14/17 02/14/17 02/14/17 07:00 15:00 23:00 Intake Total 480 ml Output Total 1700 ml Balance -1220 ml Physical Exam GENERAL: Alert, Affect appropriate to situation, NAD, pleasant 75/F SKIN: Warm and dry. NECK: Supple, No JVD CARDIOVASCULAR: +S1,S2 RESPIRATORY: Breath sounds equal and clear bilaterally GASTROINTESTINAL: Abdomen soft, non-tender, nondistended. 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
--- NOTE | 2017-02-14 12:23 | HHI.PR ---
Subjective Remarks patient appears comfortable, smiling no complains no chest pains or shortness or breath SBP readings in 70-90s- repeat now 102/62 she got all her meds this am Objective Vitals Vital Signs Date Time Temp Pulse Resp B/P Pulse Ox O2 Delivery O2 Flow Rate FiO2 02/14/17 10:00 74 02/14/17 10:00 98/53 02/14/17 09:00 111/65 02/14/17 09:00 74 02/14/17 08:30 123/73 02/14/17 08:00 84 02/14/17 08:00 98 Nasal Cannula 2.00 Humidified 02/14/17 07:30 99.3 81 16 136/83 98 02/14/17 07:00 69 02/14/17 07:00 99.3 78 17 136/83 98 02/14/17 03:00 73 02/14/17 03:00 99 Nasal Cannula 2.00 02/14/17 03:00 98.4 73 18 135/79 99 02/13/17 23:00 98.5 90 18 124/71 99 02/13/17 23:00 79 02/13/17 23:00 98 Nasal Cannula 2.00 02/13/17 19:30 147/83 02/13/17 19:21 95 21 02/13/17 19:00 99 Nasal Cannula 2.00 02/13/17 19:00 98.5 90 18 161/94 99 Automatic Cuff 02/13/17 19:00 90 02/13/17 15:15 97 Nasal Cannula 2.00 02/13/17 15:15 91 02/13/17 15:15 98.9 85 18 115/52 97 02/13/17 14:00 110 02/13/17 13:00 92 I/O 02/13/17 02/13/17 02/13/17 02/14/17 02/14/17 02/14/17 07:00 15:00 23:00 07:00 15:00 23:00 Intake Total 360 ml 1260 ml 480 ml Output Total 650 ml 600 ml 1700 ml Balance -290 ml 660 ml -1220 ml Intake Oral 360 ml 1260 ml 480 ml Output Urine Total 650 ml 600 ml 1700 ml # Voids 2 # Bowel Movements 1 2 1 Result Diagram: 02/10/17 0315 02/12/17 1720 Imaging Last Impressions Chest X-Ray 02/10/17 0600 Signed Impressions: Service Date/Time: Friday, February 10, 2017 04:48 - CONCLUSION: 1. Stable chest x-ray with moderate size left pleural effusion with associated volume loss and/or airspace consolidation. 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 Trevon Wilson MD Aorta CTA 02/06/17 0000 Signed Impressions: Service Date/Time: Monday, February 06, 2017 10:25 - CONCLUSION: 1. [place] type B aortic dissection beginning approximately 4 cm distal to the left subclavian artery origin and terminating just cephalad to the renal artery origins. The only vessel arising from the false lumen is the celiac. 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 There is some fenestration to the dissection flap as there is equal opacification of the true and false lumens. Arch vessels are not involved. 2. Moderate size left pleural effusion. 3. Cardiomegaly. 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 Barbour - CTA chest abd pelvis-stable [place] type B dissection. Moderate left pleural effusion probably sympathetic - Telemetry - rate - SR - 2d Echo 02/08. EF 45%, Moderate MR. Cardiology consult once more stable - Liberalize SBP goals to < 140, given that patient will likely not be able to accomplish < 110 at home. - Hypertension regimen: reviewed some SBP readings in the 90s metoprolol 25 mg po q 8- discontinue amlodipine lasix 20mg po bid clonidine to 0.3mg po q8h- decrease to 0.2 mo po bid lisinopril 20mg po daily - prn hydralazine and labetalol - continue to adjust - - arrange f/u CTA as outpatient- per Vascular Service Metabolic encephalopathy Underlying mild cognitive impairment -Morphine and Tylenol for pain control -Haldol as needed for agitation. -Patient may have mild underlying cognitive deficits -melatonin for improved sleep/wake cycle. RESP: Moderate left effusion -DuoNeb q6 PRN. Aggressive pulmonary toilet -EzPAP, Acapella, IS -Empiric Zosyn -DCd GI: -Cardiac diet, Pepcid for GI prophylaxis : Urinary Retention -Monitor renal function closely . trial of flomax -christian replaced overnight for urinary retention. start flomax today. give 48h of flomax - 02/11 and a second trial of voiding with christian removal. removed today 02/13 ID: Fever -resolved LLL effusion did not appear infected -Blood cultures urine -negative to date -s/p empiric zosyn Endo Diabetes mellitus Hypokalemia- resolved - Insulin sliding scale- good readings DVT GI prophylaxis - SQH - Teds SCDs and Pepcid d/w daughter on phone - - SNF- expressed understanding Paige Molina MD Feb 14, 2017 12:23 Paige Molina MD Feb 14, 2017 12:23
[2017-02-14 14:48] LABS: HEMATOCRIT 33.9 % (35.0-46.0); MEAN CELL VOLUME 88.8 FL (80.0-100.0); MEAN CORPUSCULAR HGB CONC 32.7 % (32.0-36.0); PLATELET COUNT 433 TH/MM3 (150-450); RED BLOOD COUNT 3.82 MIL/MM3 (4.00-5.30); RED CELL DISTRIBUTION WIDTH 14.3 % (11.6-17.2); REVIEW FLAG FINAL; WHITE BLOOD COUNT 9.4 TH/MM3 (4.0-11.0)
[2017-02-14] MEDS ORDERED: METOPROLOL TARTRATE 25 MG TAB PO SCH (15:45)
[2017-02-14] MEDS: cloNIDine HCL 0.2 MG TAB PO SCH ×2 (21:00→21:50)
[2017-02-14] MEDS: PRAVASTATIN SOD 40 MG TAB PO SCH (21:34)
[2017-02-14] MEDS: MELATONIN 5 MG TAB PO SCH (21:35)
[2017-02-14] MEDS: METOPROLOL TARTRATE 25 MG TAB PO SCH (21:47)
[2017-02-15] VITALS (21 sets, daily range): BP systolic 97–136; BP diastolic 60–83; PULSE 74–98; RESP 16; TEMP 97.6–98.7; O2SAT 94–99
[2017-02-15] MEDS: CHLORHEXIDINE GLUCONATE 2 % 1 PACK (2 CLOTHS) TOP SCH (04:00)
[2017-02-15] MEDS: HEPARIN SODIUM - SQ 10,000 UNITS/ML VIAL SQ SCH ×2 (06:09→14:12)
[2017-02-15] MEDS: METOPROLOL TARTRATE 25 MG TAB PO SCH ×2 (06:09→14:13)
[2017-02-15] MEDS: TAMSULOSIN HCL 0.4 MG CAP PO SCH (08:55)
[2017-02-15] MEDS: FAMOTIDINE 20 MG TAB PO SCH (08:55)
[2017-02-15] MEDS: POTASSIUM CHLORIDE 20 MEQ CONTROLLED RELEASE TAB PO SCH (08:55)
[2017-02-15] MEDS: FUROSEMIDE 20 MG TAB PO SCH (08:55)
[2017-02-15] MEDS: DOCUSATE SODIUM 100 MG CAP PO SCH (08:55)
[2017-02-15] MEDS: SERTRALINE HCL 50 MG TAB PO SCH (08:55)
[2017-02-15] MEDS: cloNIDine HCL 0.2 MG TAB PO SCH (08:56)
[2017-02-15] MEDS: SODIUM CHLORIDE 0.9% FLUSH 10 ML FLUSH SCH (08:56)
[2017-02-15] MEDS: LISINOPRIL 20 MG TAB PO SCH (08:57)
--- NOTE | 2017-02-15 09:48 | HHI.PR ---
Subjective Remarks awake and alert, smiling no chest pains or shortness of breath per family complained of some pain on both feet last evening "burning" voiding well telemetry- SR with occ, PVCs Objective Vitals Vital Signs Date Time Temp Pulse Resp B/P Pulse Ox O2 Delivery O2 Flow Rate FiO2 02/15/17 08:00 75 02/15/17 08:00 95 Nasal Cannula 2.00 02/15/17 07:00 83 02/15/17 06:00 98 02/15/17 05:00 78 02/15/17 04:00 74 02/15/17 03:00 Nasal Cannula 2.00 02/15/17 03:00 76 02/15/17 03:00 98.7 75 16 128/79 99 02/15/17 02:00 84 02/15/17 01:00 80 02/15/17 00:00 80 02/14/17 23:00 80 02/14/17 23:00 99.0 94 20 103/56 99 02/14/17 23:00 Nasal Cannula 2.00 02/14/17 22:00 94 02/14/17 21:00 94 02/14/17 20:00 92 02/14/17 19:00 Nasal Cannula 2.00 02/14/17 19:00 98.8 85 16 141/77 97 02/14/17 19:00 85 02/14/17 18:00 138/86 02/14/17 18:00 80 02/14/17 17:14 79 02/14/17 17:00 130/77 02/14/17 16:29 118/68 02/14/17 16:00 85 02/14/17 16:00 130/77 02/14/17 15:00 Nasal Cannula 2.00 02/14/17 15:00 98.1 77 16 122/68 95 02/14/17 15:00 70 02/14/17 14:34 101/52 02/14/17 14:17 88/67 02/14/17 14:00 88 02/14/17 13:00 70 02/14/17 12:35 109/62 02/14/17 12:00 73 02/14/17 11:00 92 Nasal Cannula 2.00 02/14/17 11:00 97.8 74 16 81/45 92 02/14/17 11:00 78 02/14/17 10:00 74 02/14/17 10:00 98/53 I/O 02/14/17 02/14/17 02/14/17 02/15/17 02/15/17 02/15/17 07:00 15:00 23:00 07:00 15:00 23:00 Intake Total 480 ml 1100 ml 480 ml Output Total 1700 ml 1000 ml 900 ml Balance -1220 ml 100 ml -420 ml Intake Oral 480 ml 1100 ml 480 ml Output Urine Total 1700 ml 1000 ml 900 ml # Bowel Movements 1 1 Result Diagram: 02/14/17 1359 02/12/17 1720 Imaging Last Impressions Chest X-Ray 02/10/17 0600 Signed Impressions: Service Date/Time: Friday, February 10, 2017 04:48 - CONCLUSION: 1. Stable chest x-ray with moderate size left pleural effusion with associated volume loss and/or airspace consolidation. 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 Trevon Wilson MD Aorta CTA 02/06/17 0000 Signed Impressions: Service Date/Time: Monday, February 06, 2017 10:25 - CONCLUSION: 1. [place] type B aortic dissection beginning approximately 4 cm distal to the left subclavian artery origin and terminating just cephalad to the renal artery origins. The only vessel arising from the false lumen is the celiac. 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 There is some fenestration to the dissection flap as there is equal opacification of the true and false lumens. Arch vessels are not involved. 2. Moderate size left pleural effusion. 3. Cardiomegaly. 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 Barbour - CTA chest abd pelvis-stable [place] type B dissection. Moderate left pleural effusion probably sympathetic - Telemetry - rate - SR - 2d Echo 02/08. EF 45%, Moderate MR. Cardiology consult once more stable - Liberalize SBP goals to < 140, given that patient will likely not be able to accomplish < 110 at home. - Hypertension regimen: reviewed some SBP readings - early this am - some SBPs 90- some meds held metoprolol 25 mg po q 8- will decrease Lasix to once daily decrease clonidine to 0.1 mg po bid decrease Lisinorpil to 10 mg daily - prn hydralazine and labetalol - continue to adjust - - arrange f/u CTA as outpatient- per Vascular Service ff up as OP- / Metabolic encephalopathy Underlying mild cognitive impairment Diabetic neuropathy- burning pain on both feet at [facility] - Tylenol for pain control. Trial of neurontin at -Haldol as needed for agitation. -Patient may have mild underlying cognitive deficits -melatonin for improved sleep/wake cycle. RESP: Moderate left effusion -DuoNeb q6 PRN. Aggressive pulmonary toilet -EzPAP, Acapella, IS -Empiric Zosyn -DCd GI: -Cardiac diet, Pepcid for GI prophylaxis : Urinary Retention- resolved -Monitor renal function closely . - Flomax daily. -christian replaced overnight for urinary retention. start flomax today. give 48h of flomax - 02/11 and a second trial of voiding with christian removal. - christian out 02/13 ID: Fever -resolved LLL effusion did not appear infected -Blood cultures urine -negative to date -s/p empiric zosyn Endo Diabetes mellitus Hypokalemia- resolved - Insulin sliding scale- good readings -- ff - was on Metformin as OP - discontinued DVT GI prophylaxis - SQH - Teds SCDs and Pepcid d/w daughter on phone - - SNF- expressed understanding- hopefully today or in am - CM ff Paige Molina MD Feb 15, 2017 09:48
[2017-02-15] MEDS ORDERED: GABAPENTIN 250 MG/5 ML UDC PO PRN (10:45)
[2017-02-15 12:03] LABS: BICARBONATE 29.3 MEQ/L (21.0-32.0); POTASSIUM 3.6 MEQ/L (3.5-5.1)
[2017-02-15] MEDS ORDERED: FAMO20TA2 PO (13:19)
[2017-02-15] MEDS ORDERED: DOCU1CAP39 PO (13:19)
[2017-02-15] MEDS ORDERED: GABA250S PO (13:19)
[2017-02-15] MEDS ORDERED: TAMS5CAP PO (13:19)
[2017-02-15] MEDS ORDERED: MELA1TAB22 PO (13:19)
[2017-02-15] MEDS ORDERED: LISI10TA3 PO (13:19)
[2017-02-15] MEDS ORDERED: METO25TA3 PO (13:19)
[2017-02-15] MEDS ORDERED: CLON.1 PO (13:19)
[2017-02-15] MEDS ORDERED: POTA-243 PO (13:19)
[2017-02-15] MEDS ORDERED: FURO20TA PO (13:19)
--- NOTE | 2017-02-15 13:28 | HHI.DS ---
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 She was found to have an acute TBAD and was transferred here. When I examined her this evening, she is pain free, having no distress, and looks comfortable. She says that the pain she had was in "her chest" but points to her epigastric region. 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 Barbour - CTA chest abd pelvis-stable Mario type B dissection. Moderate left pleural effusion probably sympathetic - Telemetry - rate - SR - 2d Echo 02/08. EF 45%, Moderate MR. Cardiology consult once more stable - Liberalize SBP goals to < 140, given that patient will likely not be able to accomplish < 110 at home. - Hypertension regimen: reviewed some SBP readings - early this am - some SBPs 90- some meds held metoprolol 25 mg po q 8- will decrease Lasix to once daily decrease clonidine to 0.1 mg po bid decrease Lisinorpil to 10 mg daily - prn hydralazine and labetalol - continue to adjust - - arrange f/u CTA as outpatient- per Vascular Service ff up as OP- 5/5 Metabolic encephalopathy Underlying mild cognitive impairment Diabetic neuropathy- burning pain on both feet at formerly [facility] - Tylenol for pain control. Trial of neurontin at hs -Haldol as needed for agitation. -Patient may have mild underlying cognitive deficits -melatonin for improved sleep/wake cycle. RESP: Moderate left effusion -DuoNeb q6 PRN. Aggressive pulmonary toilet -EzPAP, Acapella, IS -Empiric Zosyn -DCd GI: -Cardiac diet, Pepcid for GI prophylaxis : Urinary Retention- resolved -Monitor renal function closely . - Flomax daily. -christian replaced overnight for urinary retention. start flomax today. give 48h of flomax - 02/11 and a second trial of voiding with christian removal. - christian out 02/13 ID: Fever -resolved LLL effusion did not appear infected -Blood cultures urine -negative to date -s/p empiric zosyn Endo Diabetes mellitus Hypokalemia- resolved - Insulin sliding scale- good readings -- ff - was on Metformin as OP - discontinued DVT GI prophylaxis - SQH - Teds SCDs and Pepcid Pt Condition on Discharge: Stable Discharge Disposition: Discharge to SNF Discharge Time: <= 30 minutes Discharge Instructions DIET: Follow Instructions for: Heart Healthy Diet, Diabetic Diet Speech Therapy-Diet Recommends: Regular Activities you can perform: Weight Bearing as Mandi Follow up Referrals: PCP Follow-up - 1 Week with PCP Vascular Surgery - 03/17/17 with Herman Barbour MD New Orders: BASIC METABOLIC PROF - 02/17/17 New Medications: Clonidine (Catapres) 0.1 Mg Tab 0.1 MG PO BID HTN Days 30 TAB Docusate Sodium (Dok) 100 Mg Cap 100 MG PO DAILY BM Days 14 CAP Famotidine (Famotidine) 20 Mg Tab 20 MG PO BID GIpro Days 30 TAB Furosemide (Furosemide) 20 Mg Tab 20 MG PO DAILY HTN Days 30 TAB Gabapentin Liq (Neurontin Liq) 250 Mg/5 Ml Soln 50 MG PO HS PRN BURNING FEET PAIN SENS #15 ML Lisinopril (Lisinopril) 10 Mg Tab 10 MG PO DAILY HTN Days 30 TAB Melatonin (Melatonin) 5 Mg Tab 5 MG PO HS sleep Days 30 TAB Metoprolol Tartrate (Metoprolol Tartrate) 25 Mg Tab 25 MG PO Q8HR HTN Days 30 TAB Potassium Chloride ER (Klor-Con 10) 10 Meq Tab 30 MEQ PO DAILY elec Days 30 TAB Tamsulosin (Flomax) 0.4 Mg Cap 0.4 MG PO DAILY URIret Days 30 CAP Continued Medications: Clonidine (Clonidine) 0.1 Mg Tab 0.1 MG PO BID Blood Pressure Management #60 Ref 0 TAB Sertraline (Sertraline) 50 Mg Tab 50 MG PO DAILY #30 Ref 0 TAB Simvastatin (Simvastatin) 20 Mg Tab 20 MG PO HS Cholesterol Management #30 Ref 0 TAB Discontinued Medications: Amlodipine (Amlodipine) 10 Mg Tab 10 MG PO DAILY Blood Pressure Management #30 Ref 0 TAB Aspirin (Aspirin Low Dose) 81 Mg Chew 81 MG CHEW DAILY Ref 0 TAB Furosemide (Furosemide) 40 Mg Tab 40 MG PO EVERY OTHER DAY #30 Ref 0 TAB Metformin (Metformin) 1,000 Mg Tab 1000 MG PO BIDPC With meals Blood Sugar Management #60 Ref 0 TAB Metoprolol Tartrate (Metoprolol Tartrate) 100 Mg Tab 100 MG PO BID #60 Ref 0 TAB Oxybutynin (Ditropan) 5 Mg Tab 5 MG PO DAILY Urinary Symptom Managemen #60 Ref 0 TAB Potassium Chloride Microencaps (Potassium Chloride Microencaps) 10 Meq Tab 10 MEQ PO Q12HR Electrolyte Replacement #60 Ref 0 TAB Paige Molina MD Feb 15, 2017 13:28
[2017-02-15] MEDS: ACETAMINOPHEN 325 MG TAB PO PRN (17:32)
[2017-02-15] MEDS ORDERED: cloNIDine HCL 0.1 MG TAB PO SCH (21:00)
[2017-02-16] MEDS ORDERED: FUROSEMIDE 20 MG TAB PO SCH (09:00)
[2017-02-16] MEDS ORDERED: POTASSIUM CHLORIDE 10 MEQ CONTROLLED RELEASE TAB PO SCH (09:00)
[2017-02-16] MEDS ORDERED: LISINOPRIL 10 MG TAB PO SCH (09:00)
== END 2017-02-15 19:30 | DRG 299 ==
LOC: HCVR 19:30 → HCIN 02-11 18:10
PROVIDERS: ADMIT Internal Medicine; ATTEND Internal Medicine
PROC: 0T9B70Z Drainage of Bladder with Drainage Device, Via Natural or Artificial Opening (ICD-10-PCS; principal; 2017-02-11)
DX: I71.01 Dissection of thoracic aorta (principal); G93.41 Metabolic encephalopathy; J90 Pleural effusion, not elsewhere classified; I95.9 Hypotension, unspecified; E11.40 Type 2 diabetes mellitus with diabetic neuropathy, unspecified; R00.1 Bradycardia, unspecified; R50.9 Fever, unspecified; G31.84 Mild cognitive impairment of uncertain or unknown etiology; E87.6 Hypokalemia; I10 Essential (primary) hypertension; R55 Syncope and collapse; R33.9 Retention of urine, unspecified
CPT/HCPCS: 36620; 71010; 71275; 74174; 76937; 80048; 80053; 81001; 82550; 82552; 82805; 82948; 83605; 83735; 84100; 84484; 85025; 85027; 85610; 85730; 86850; 86900; 86901; 87040; 87086; 87641; 93005; 93306; 94150; 94640; 94667; 94668; 99281; J0171; J0360; J0456; J0461; J1630; J1644; J1940; J2060; J2270; J2543; J3480; J7030; J7050; Q9967